=== PATIENT | male | born 1960 | race Hispanic/Latino ===

== ENCOUNTER 2017-10-26 14:14 | Emergency (ER) | payer BC ==
[~2017-10-26] VITALS: Ht 167.6 cm; Wt 70.8 kg
[~2017-10-26 14:14] MED LIST: BUDESONIDE EC3 MG PO; CLONAZEPAM0.5 MG PO; LIALDA1.2 GM PO; MELOXICAM7.5 MG PO; NEXIUM20 MG PO; PROPRANOLOL HCL10 MG PO; SUCRALFATE1 GM PO; XANAX0.5 MG PO
--- OUTSIDE RECORDS SUMMARY | 2017-10-26 14:17 | XMS REPORT | Summary of Care ---
Author Author JHONNY Mccormick, ISIDRO Organization Unknown Address Unknown Phone Unavailable Care Team Providers Care Pay Per Click Strategist Name Role Phone ISIDRO BARRY M.D. Unavailable Unavailable Unavailable Unavailable Functional Status Name Dates Details Functional status health issues are not documented Status: Name Dates Details Cognitive status health issues are not documented Status: Problems Name Dates Details Aftercare following surgery (V58.89, Z48.89) Status: Active Medications Name Dates Details Lialda 1.2 GM Oral Tablet Delayed Release Active Budesonide 3 MG Oral Capsule Delayed Release Particles * Refills: 0 Active Methocarbamol 750 MG Oral Tablet * Refills: 0 Active ClonazePAM 1 MG Oral Tablet * Refills: 0 Active Propranolol HCl - 10 MG Oral Tablet * Refills: 0 Active Hydrocodone-Acetaminophen 5-500 MG TABS * Refills: 0 Active Allergies and Adverse Reactions Name Dates Details No Known Drug Allergies (Allergy) Status: Active Past Medical History Name Dates Details History of Bloating (787.3, R14.0) Status: Resolved History of Chronic GERD (530.81, K21.9) Status: Resolved History of dysphagia (V12.79, Z87.19) Status: Resolved History of Flatus (787.3, R14.3) Status: Resolved History of gastroesophageal reflux (GERD) (V12.79, Z87.19) Status: Resolved History of hiatal hernia (V12.79, Z87.19) Status: Resolved History of hiatal hernia (V12.79, Z87.19) Status: Resolved History of Lumbar spondylosis (721.3, M47.816) Status: Resolved History of neck pain (V13.59, Z87.39) Status: Resolved History of sleep apnea (V13.89, Z86.69) Status: Resolved History of Weight loss, unintentional (783.21, R63.4) Status: Resolved Procedures Procedure Dates Details History of Cervical vertebral fusion Completed History of Rotator cuff repair Completed History of Hemicolectomy Completed History of Epigastric hernia repair Completed History of Humberto fundoplication laparoscopic Completed Immunization Name Dates Details Immunizations not documented Family History Name Dates Details No pertinent family history Status: Active Name Dates Details Family history of diabetes mellitus (V18.0, Z83.3) Status: Active Social History Name Dates Details - Status: Name Dates Details Never smoker Vital Signs Date Test Result Details [id number] BP Systolic 133 mm[Hg] Status: Comments: Location: LUE; Position: Sitting BP Diastolic 95 mm[Hg] Status: Comments: Location: LUE; Position: Sitting Height 66 in Status: Weight 163.375 lb Status: Body Mass Index Calculated 26.37 kg/m2 Status: Body Surface Area Calculated 1.84 m2 Status: Temperature 98.4 f Status: Comments: Method: Oral Heart Rate 63 /min Status: Respiration Rate 20 /min Status: Comments: Quality: Normal O2 SAT 98 % Status: Comments: Source: RA Results Date Description Value Details Results not documented Plan of Care Name Dates Details Planned Observations Planned Goals not documented Planned Encounters Appointment; ISIDRO BARRY M.D. On: 25-Jun-2018 15:15 Interventions Provided Plan* I will see him again in 9 months for a follow up. Discussion/Summary* Post op instructions: cannot perform any heavy lifting > 4lbs for 8 weeks and no driving for 4 weeks following the procedure. Crush all medications in liquid form and no drinking from straws until instructed by us in the clinic visit. Instructions Name Dates Details Instructions not documented Encounters Appointment; MIRELLA CHENG M.D. Encounter Diagnosis: Problem not documented On: 02-Jan-2017 14:00 Appointment; ISIDRO BARRY M.D. Encounter Diagnosis: Problem not documented On: 08-May-2017 13:45 Appointment; ISIDRO BARRY M.D. Encounter Diagnosis: Problem not documented On: 19-Jun-2017 8:45 Appointment; ISIDRO BARRY M.D. Encounter Diagnosis: Problem not documented On: 18-Sep-2017 15:00
[2017-10-26] MEDS ORDERED: DIATRIZOATE MEGL/DIATRIZOA SOD 30 ML BTL PO ONE (14:42)
[2017-10-26] MEDS ORDERED: SODIUM CHLORIDE 0.9% 1000ML 1,000 ML IV SCH (14:45)
[2017-10-26] MEDS ORDERED: ONDANSETRON HCL 4 MG ORAL DISINTEGRATING TAB PO ONE (14:45)
[2017-10-26] MEDS ORDERED: HYDROMORPHONE 2MG/ML INJ IV ONE (14:45)
[2017-10-26 15:00] LABS: BASOPHILS # (AUTO) 0.1 (0.0-0.1); BASOPHILS % 1.1 % (0.0-1.0); EOSINOPHILS # (AUTO) 0.7 (0.0-0.4); EOSINOPHILS % 11.2 % (0.0-6.0); HEMATOCRIT 43.8 % (38.2-49.6); HEMOGLOBIN 14.9 g/dL (14.0-18.0); LYMPHOCYTES % 31.2 % (18.0-39.1); MEAN CORPUSCULAR HEMOGLOBIN 30.2 pg (28-32); MEAN CORPUSCULAR VOLUME 88.8 fL (81-99); MONOCYTES # (AUTO) 0.6 (0.2-0.8); MONOCYTES % 9.1 % (4.4-11.3); NEUTROPHILS % 47.1 % (38.7-80.0); PLATELET COUNT 219 x10e3/uL (140-360); RED BLOOD COUNT 4.93 x10e6/uL (4.3-5.7); RED CELL DISTRIBUTION WIDTH 12.1 % (11.7-14.4)
[2017-10-26 15:04] LABS: BILIRUBIN,URINE NEGATIVE (NEGATIVE); CLARITY,URINE SL CLOUDY (CLEAR); COLOR,URINE YELLOW (YELLOW); KETONES,URINE NEGATIVE (NEGATIVE); LEUKOCYTE ESTERASE ,URINE NEGATIVE (NEGATIVE); NITRITE,URINE NEGATIVE (NEGATIVE); PROTEIN,URINE DIPSTICK TRACE (NEGATIVE); URINE UROBILINOGEN 0.2 mg/dL (0.2 - 1)
[2017-10-26 15:11] LABS: WBC,URINE (MAN) 0-5 /HPF (0-5)
[2017-10-26 15:12] LABS: BACTERIA,URINE FEW /HPF; EPITHELIAL CELLS,URINE FEW /LPF; HYALINE CASTS 0-1 (0-1)
[2017-10-26 15:41] LABS: ALANINE AMINOTRANSFERASE 25 IU/L (0-55); ALBUMIN/GLOBULIN RATIO 1.1 (0.8-2.0); ALKALINE PHOSPHATASE 85 IU/L (40-150); ANION GAP 12.8 mmol/L (8-16); BLOOD UREA NITROGEN 14 mg/dL (7-26); BUN/CREATININE RATIO 14 (6-25); CALCIUM 9.5 mg/dL (8.4-10.2); CARBON DIOXIDE 25 mmol/L (22-29); CHLORIDE 100 mmol/L (98-107); EST GLOMERULAR FILTRATION RATE > 60 ML/MIN (60-); GLUCOSE 92 mg/dL (74-118); LIPASE 15 U/L (8-78); POTASSIUM 3.8 mmol/L (3.5-5.1); SODIUM 134 mmol/L (136-145)
--- NOTE | 2017-10-26 17:23 | Diagnostic Imaging Report ---
EXAM: CT Abdomen and Pelvis WITH contrast INDICATION: Left lower quadrant pain COMPARISON: None. TECHNIQUE: Abdomen and pelvis were scanned utilizing a multidetector helical scanner from the lung base to the ischial tuberosities after administration of IV contrast. Coronal and sagittal reformations were obtained. Routine protocol was performed. Scan was performed when during portal venous phase. IV CONTRAST: 100 mL of Isovue-370 ORAL CONTRAST: Gastroview RADIATION DOSE: Total DLP: 281.0 mGy*cm Estimated effective dose: DLP x 0.015 mSv COMPLICATIONS: None FINDINGS: LINES and TUBES: None. LOWER THORAX: The lungs and airways are normal. HEPATOBILIARY: No focal hepatic lesions. No biliary ductal dilation. GALLBLADDER: Absent SPLEEN: No splenomegaly. PANCREAS: No focal masses or ductal dilatation. ADRENALS: No adrenal nodules KIDNEYS/URETERS: Kidneys enhance symmetrically. No hydronephrosis. Small hypodensities in the right kidney are too small to characterize, but likely represent cysts. No stones. GI TRACT: Post surgical changes from prior sigmoid resection. No abnormal distention, wall thickening, or evidence of bowel obstruction. Numerous sigmoid diverticula without evidence of acute diverticulitis. There is a large amount of stool throughout the colon Postsurgical changes to the stomach at the level of the GE junction. Appendix is normal. PELVIC ORGANS/BLADDER: Coarse calcifications in the prostate. Foci of gas density within the bladder are presumably related to recent catheterization. LYMPH NODES: No lymphadenopathy. VESSELS: Unremarkable. PERITONEUM / RETROPERITONEUM: No free air or fluid. BONES: Unremarkable. SOFT TISSUES: Bilateral, fat-containing inguinal hernias. No bowel involvement. Midline laparotomy scar. IMPRESSION: 1. Postsurgical changes from prior sigmoid resection. 2. Sigmoid diverticulosis without CT evidence of acute diverticulitis. 3. There is a large amount of stool throughout the colon. Signed by: Dr. Brock Spencer M.D. on 10/26/2017 5:19 PM
[2017-10-26] MEDS ORDERED: MINERAL OIL 132 ML BTL PR ONE (17:45)
[2017-10-26] MEDS ORDERED: LACTULOSE SYRUP 20 GM/30 ML UDC PO ONE (17:45)
[2017-10-26] MEDS ORDERED: MINERAL OIL 132 ML BTL PR NR (18:00)
[2017-10-26] MEDS ORDERED: SODIUM CHLORIDE 0.9% 50ML 50 ML ONE (18:47)
[2017-10-26] MEDS ORDERED: IOPAMIDOL 370 MG/ML 200 ML INFUS..BTL INJ ONE (18:47)
[2017-10-26 19:09] VITALS: BP 123/82
== END 2017-10-26 19:24 | disposition home or self-care (01) ==
LOC: ER 14:14
DX: R10.32 Left lower quadrant pain (principal); K59.00 Constipation, unspecified; Z98.0 Intestinal bypass and anastomosis status; K21.9 Gastro-esophageal reflux disease without esophagitis; F41.9 Anxiety disorder, unspecified; Z87.19 Personal history of other diseases of the digestive system
CPT/HCPCS: 36415; 74177; 80053; 81001; 83690; 85025; 99284; J1170; J7030; Q9967

== ENCOUNTER → 2018-07-11 | Day surgery (SDC) | payer BC ==
--- NOTE | 2018-07-09 12:11 | Diagnostic Imaging Report ---
EXAM: XR CHEST 2 VIEWS DATE: 07/09/2018 11:42 AM INDICATION: Preoperative. Left foot surgery. COMPARISON: None FINDINGS: Lines and Tubes: None Heart and Mediastinum: No acute cardiomediastinal findings. Lungs and Pleura: No significant pleural effusion, pneumothorax, or focal consolidation. Mild biapical scarring. Bones and Soft Tissues: Surgical anchor left humeral head. IMPRESSION: 1. No acute cardiopulmonary findings. Signed by: Dr. Lawrence Walker MD on 07/09/2018 12:08 PM
[~2018-07-11] MED LIST changes: +ACETAMINOPHEN 1000 MG/100 ML 100 ML IV ONE; +CLONAZEPAM1 MG PO; +DEXAMETHASONE SOD PHOS INJ 4 MG/ML VIAL ONE; +EPHEDRINE SULFATE INJ 50 MG/10 ML SYR ONE; +FENTANYL CITRATE/PF 100MCG/2 ML INJ ONE; +HYDROMORPHONE 2MG/ML 2 MG/ML ML ONE; +LIDOCAINE HCL 2% LOCAL INJ 5 ML SDV VIAL INJ ONE; +MIDAZOLAM HCL 2 MG/2 ML VIAL ONE; +MUPIROCIN 2% OINT 22 GM TUBE ONE; +OMEPRAZOLE40 MG PO; +ONDANSETRON HCL INJ 2MG/ML 2ML 2 MG/ML VIAL ONE; +OXYCODONE-ACET1 EAC1 PO; +PROPOFOL IV EMULSION 10 MG/ML 20 ML VIAL ONE; +REMICADE INFUSION IM/IV; +SEVOFLURANE INHAL SOLN 250 ML PEN BTL ONE
--- OUTSIDE RECORDS SUMMARY | 2018-07-11 06:50 | XMS REPORT | Summary of Care ---
Author Author [facility] Organization [facility] Address Unknown Phone Unavailable Encounter HQ Encntr_alias(FIN) [id number] Date(s): 05/08/17 - 05/08/17 [facility] [address] [place] [address]- Discharge Disposition: Home or Self Care Attending Physician: Ophelia Bowie MD Referring Physician: Ophelia Bowie MD Vital Signs No data available for this section Problem List Condition Effective Dates Status Health Status Informant Anxiety(Confirmed) Resolved Depression(Confirmed Resolved ) Reflux(Confirmed) Resolved Allergies, Adverse Reactions, Alerts Substance Reaction Severity Status NKDA Active Medications No data available for this section Results No data available for this section Immunizations No data available for this section Procedures Procedure Date Related Diagnosis Body Site Laparoscopic cholecystectomy Operation1 Rotator cuff repair2 1colon resection laparoscopic 2left Social History No data available for this section Assessment and Plan No data available for this section
--- OUTSIDE RECORDS SUMMARY | 2018-07-11 06:50 | XMS REPORT | Summary of Care ---
Author Author [facility] Organization [facility] Address Unknown Phone Unavailable Encounter [facility](MARYLU) [id number] Date(s): 05/24/17 - 05/26/17 [facility] [address] [place] [address]- Final: Dysphagia, unspecified Discharge Disposition: Home or Self Care Attending Physician: Dyllan Acevedo DO Admitting Physician: Dyllan Acevedo DO Referring Physician: Ophelia Bowie MD Vital Signs 1 2 3 Most recent to oldest [Reference Range]: 170.18 cm (05/23/17 7:20 AM) Height 97.8 DegF (05/26/17 8:12 AM) 98.2 DegF (05/26/17 4:19 AM) 98.0 DegF (05/26/17 12:06 AM) Temperature Oral [96.4-99.1 DegF] 121/76 mmHg (05/26/17 8:12 AM) 101/64 mmHg (05/26/17 4:19 AM) 113/70 mmHg (05/26/17 12:06 AM) Blood Pressure [90-140/60-90 mmHg] 16 BRMIN (05/26/17 8:49 AM) 18 BRMIN (05/26/17 8:12 AM) 16 BRMIN (05/26/17 4:19 AM) Respiratory Rate [14-20 BRMIN] 48 bpm *LOW* (05/26/17 8:12 AM) 62 bpm (05/26/17 4:19 AM) 58 bpm *LOW* (05/26/17 12:06 AM) Peripheral Pulse Rate [60-100 bpm] 69.864 kg (05/23/17 7:20 AM) Weight 24.12 m2 (05/23/17 7:20 AM) Body Mass Index Problem List Condition Effective Dates Status Health Status Informant Anxiety(Confirmed) Active Crohn Active disease(Confirmed) Depression(Confirmed Active ) Dysphagia(Confirmed) Active Reflux(Confirmed) Resolved Apnea, Active sleep(Confirmed) Allergies, Adverse Reactions, Alerts Substance Reaction Severity Status NKDA Active Medications *ATTN RN please bring pt home med to pharmacy to be labeled* *ATTN RN please bring pt home med to pharmacy to be labeled*, ATTN RN, Drug form: MISC, Route: MISC, QSHIFT, 05/25/17 0:00:00 EXTRACT PULLER, Duration: 30 day, Stop d ate: 06/23/17 16:00:00 EXTRACT PULLER Start Date: 05/25/17 Stop Date: 05/26/17 Status: Discontinued acetaminophen (ANES) Route: IV, Drug form: INJ, ONCE, Stop date: 05/24/17 10:35:00 EXTRACT PULLER Start Date: 05/24/17 Stop Date: 05/24/17 Status: Completed albuterol 0.083% inhalation solution 2.5 mg, Route: INHALATION, Q6H, Dosing Weight 69.864, kg, Start date: 05/24/17 1 8:00:00 EXTRACT PULLER, Duration: 30 day, Stop date: 06/23/17 12:00:00 EXTRACT PULLER Start Date: 05/24/17 Stop Date: 05/24/17 Status: Discontinued albuterol 0.083% inhalation solution 2.49 mg, 3 mL, Route: NEB, Drug form: SOLN, PRN, Dosing Weight 69.864, kg, PRN R espiratory Protocol, Start date: 05/24/17 14:51:00 EXTRACT PULLER, Duration: 30 day, Stop d ate: 06/23/17 14:50:00 EXTRACT PULLER Notes: SEE RT DOCUMENTATION (Same as: Proventil) Start Date: 05/24/17 Stop Date: 05/26/17 Status: Discontinued albuterol 0.083% inhalation solution 2.5 mg, 3.01 mL, Route: INHALATION, Drug form: SOLN, RQ6H, Dosing Weight 69.864, kg, Start date: 05/24/17 20:00:00 EXTRACT PULLER, Duration: 30 day, Stop date: 06/23/17 14 :00:00 EXTRACT PULLER Notes: SEE RT DOCUMENTATION (Same as: Proventil) Start Date: 05/24/17 Stop Date: 05/24/17 Status: Canceled albuterol 0.083% inhalation solution 2.49 mg, 3 mL, Route: NEB, Drug form: SOLN, RQ4H, Dosing Weight 69.864, kg, Star t date: 05/24/17 19:00:00 EXTRACT PULLER, Duration: 30 day, Stop date: 06/23/17 15:00:00 CS T Notes: SEE RT DOCUMENTATION (Same as: Delmer) Start Date: 05/24/17 Stop Date: 05/24/17 Status: Canceled ANES acetaminophen 1,000 mg, Route: PO, Drug form: TAB, ONCE, Dosing Weight 69.864, kg, PRN Pain Sc ore 1-3, Start date: 05/24/17 11:11:00 EXTRACT PULLER Start Date: 05/24/17 Stop Date: 05/24/17 Status: Discontinued ANES albuterol 0.083% inhalation solution 2.49 mg, Route: NEB, Q20Min, Dosing Weight 69.864, kg, PRN Wheezing, Priority: R outine, Start date: 05/24/17 11:11:00 EXTRACT PULLER, Duration: 30 day, Stop date: 06/23/17 11:10:00 EXTRACT PULLER Start Date: 05/24/17 Stop Date: 05/24/17 Status: Discontinued ANES diphenhydrAMINE 12.5 mg, Route: IVP, Drug form: INJ, Q6H, Dosing Weight 69.864, kg, PRN Itching, Start date: 05/24/17 11:11:00 EXTRACT PULLER, Duration: 30 day, Stop date: 06/23/17 11:10: 00 EXTRACT PULLER Start Date: 05/24/17 Stop Date: 05/24/17 Status: Discontinued ANES fentaNYL 50 microgram, Route: IVP, Q5Min, Dosing Weight 69.864, kg, PRN Pain Score 7-10, Priority: Routine, Start date: 05/24/17 11:11:00 EXTRACT PULLER, Duration: 2 doses or times , Stop date: Limited # of times Start Date: 05/24/17 Stop Date: 05/24/17 Status: Completed ANES fentaNYL 25 microgram, Route: IVP, Q5Min, Dosing Weight 69.864, kg, PRN Pain Score 4-6, P riority: Routine, Start date: 05/24/17 11:11:00 EXTRACT PULLER, Duration: 4 doses or times, Stop date: Limited # of times Start Date: 05/24/17 Stop Date: 05/24/17 Status: Discontinued ANES flumazenil 0.2 mg, Route: IVP, PRN, Dosing Weight 69.864, kg, PRN Benzodiazepine Reversal, Initial dose, Start date: 05/24/17 11:11:00 EXTRACT PULLER, Duration: 30 day, Stop date: 11:10:00 EXTRACT PULLER Start Date: 05/24/17 Stop Date: 05/24/17 Status: Discontinued ANES hydrALAZINE 10 mg, Route: IVP, Q20Min, Dosing Weight 69.864, kg, PRN Elevated BP, Start date : 05/24/17 11:11:00 EXTRACT PULLER, Duration: 2 doses or times, Stop date: Limited # of luly es Start Date: 05/24/17 Stop Date: 05/24/17 Status: Discontinued ANES HYDROmorphone 0.5 mg, Route: IVP, Q5Min, Dosing Weight 69.864, kg, PRN Pain Score 7-10, Start date: 05/24/17 11:11:00 EXTRACT PULLER, Duration: 4 doses or times, Stop date: Limited # of times Start Date: 05/24/17 Stop Date: 05/24/17 Status: Discontinued ANES ketOROLAC 30 mg, Route: IVP, ONCE, Dosing Weight 69.864, kg, Start date: 05/24/17 11:11:00 EXTRACT PULLER, Stop date: 05/24/17 11:11:00 EXTRACT PULLER Start Date: 05/24/17 Stop Date: 05/24/17 Status: Discontinued ANES labetalol 10 mg, Route: IVP, Q5Min, Dosing Weight 69.864, kg, PRN Elevated BP, Start date: 05/24/17 11:11:00 EXTRACT PULLER, Duration: 5 doses or times, Stop date: Limited # of times Start Date: 05/24/17 Stop Date: 05/24/17 Status: Discontinued ANES meperidine 12.5 mg, Route: IVP, Q30Min, Dosing Weight 69.864, kg, PRN Other -See Comment, F or shivering, Start date: 05/24/17 11:11:00 EXTRACT PULLER, Duration: 2 doses or times, Sto p date: Limited # of times Start Date: 05/24/17 Stop Date: 05/24/17 Status: Discontinued ANES naloxone 0.4 mg, Route: IVP, Q2MIN, Dosing Weight 69.864, kg, PRN Narcotic Reversal, Star t date: 05/24/17 11:11:00 EXTRACT PULLER, Duration: 8 doses or times, Stop date: Limited # of times Start Date: 05/24/17 Stop Date: 05/24/17 Status: Discontinued ANES naloxone 0.1 mg, Route: SUB-Q, Q6H, Dosing Weight 69.864, kg, PRN Itching, Start date: 11:11:00 EXTRACT PULLER, Duration: 30 day, Stop date: 06/23/17 11:10:00 EXTRACT PULLER Start Date: 05/24/17 Stop Date: 05/24/17 Status: Discontinued ANES ondansetron 4 mg, Route: IVP, ONCE, Dosing Weight 69.864, kg, PRN Nausea & Vomiting, Start date: 05/24/17 11:11:00 EXTRACT PULLER Start Date: 05/24/17 Stop Date: 05/24/17 Status: Discontinued ANES oxyCODONE 5 mg, Route: PO, Drug form: TAB, Q4H, Dosing Weight 69.864, kg, PRN Pain Score 4 -6, Start date: 05/24/17 11:11:00 EXTRACT PULLER, Duration: 30 day, Stop date: 06/23/17 11: 10:00 EXTRACT PULLER Start Date: 05/24/17 Stop Date: 05/24/17 Status: Discontinued ANES oxyCODONE 10 mg, Route: PO, Drug form: TAB, Q4H, Dosing Weight 69.864, kg, PRN Pain Score 7-10, Start date: 05/24/17 11:11:00 EXTRACT PULLER, Duration: 30 day, Stop date: 06/23/17 1 1:10:00 EXTRACT PULLER Start Date: 05/24/17 Stop Date: 05/24/17 Status: Discontinued ANES promethazine 6.25 mg, Route: IVPB, ONCE, Dosing Weight 69.864, kg, PRN Nausea & Vomiting, Start date: 05/24/17 11:11:00 EXTRACT PULLER Start Date: 05/24/17 Stop Date: 05/24/17 Status: Discontinued budesonide 12 mg, PO, Daily, 0 Refill(s) Start Date: 05/23/17 Stop Date: 05/24/17 Status: Discontinued budesonide 9 mg, 3 cap, Route: PO, Drug form: ERCAP, Daily, Dosing Weight 69.864, kg, Start date: 05/25/17 9:00:00 EXTRACT PULLER, Duration: 30 day, Stop date: 06/23/17 9:00:00 EXTRACT PULLER Notes: (Same As: Entocort EC or Budesonide 3 mg EC / ERC) "Do Not Crush" Start Date: 05/25/17 Stop Date: 05/26/17 Status: Discontinued budesonide 3 mg oral capsule, extended release 9 mg=3 cap, PO, Daily, # 270 cap, 0 Refill(s) Start Date: 05/24/17 Status: Ordered cefOXitin (ANES) Route: IV, Drug form: INJ, ONCE, Stop date: 05/24/17 9:35:00 EXTRACT PULLER Start Date: 05/24/17 Stop Date: 05/24/17 Status: Completed cefOXitin (SCIP) + sterile water 10 mL 1 gm, Route: IVP, ABXQ6H, Dosing Weight 69.864, kg, Start date: 05/24/17 17:00:0 0 EXTRACT PULLER, Duration: 24 hr, Stop date: 05/25/17 10:00:00 EXTRACT PULLER, ABX Indication: Surgic al Prophylaxis Notes: (Same As: Mefoxin) Start Date: 05/24/17 Stop Date: 05/25/17 Status: Completed clonazePAM 1 mg, PO, TID, 0 Refill(s) Start Date: 05/23/17 Status: Ordered clonazePAM 1 mg, 1 tab, Route: PO, Drug form: TAB, TID, Dosing Weight 69.864, kg, PRN Anxie ty, Start date: 05/24/17 14:56:00 EXTRACT PULLER, Duration: 30 day, Stop date: 06/23/17 14: 55:00 EXTRACT PULLER Notes: (Same As: KlonoPIN) Start Date: 05/24/17 Stop Date: 05/26/17 Status: Discontinued dexamethasone (ANES) Route: IV, Drug form: INJ, ONCE, Stop date: 05/24/17 10:35:00 EXTRACT PULLER Start Date: 05/24/17 Stop Date: 05/24/17 Status: Completed ePHEDrine (ANES) Route: IV, Drug form: INJ, ONCE, Stop date: 05/24/17 10:35:00 EXTRACT PULLER Start Date: 05/24/17 Stop Date: 05/24/17 Status: Completed famotidine (ANES) Route: IV, Drug form: INJ, ONCE, Stop date: 05/24/17 9:25:00 EXTRACT PULLER Start Date: 05/24/17 Stop Date: 05/24/17 Status: Completed fentaNYL 50 microgram, Route: IVP, ONCE, Dosing Weight 69.864, kg, Priority: STAT, Start date: 05/24/17 12:35:00 EXTRACT PULLER, Stop date: 05/24/17 12:35:00 EXTRACT PULLER Start Date: 05/24/17 Stop Date: 05/24/17 Status: Completed fentaNYL (ANES) Route: IV, Drug form: INJ, ONCE, Stop date: 05/24/17 9:20:00 EXTRACT PULLER Start Date: 05/24/17 Stop Date: 05/24/17 Status: Completed glycopyrrolate (ANES) Route: IV, Drug form: INJ, ONCE, Stop date: 05/24/17 9:35:00 EXTRACT PULLER Start Date: 05/24/17 Stop Date: 05/24/17 Status: Completed heparin 5,000 unit, 1 mL, Route: SUB-Q, Drug form: INJ, Q12H, Dosing Weight 69.864, kg, Start date: 05/24/17 23:00:00 EXTRACT PULLER, Duration: 30 day, Stop date: 06/23/17 11:00:0 0 EXTRACT PULLER Notes: porcine heparin Start Date: 05/24/17 Stop Date: 05/24/17 Status: Canceled heparin 5,000 unit, 1 mL, Route: SUB-Q, Drug form: INJ, Q12H, Dosing Weight 69.864, kg, Start date: 05/24/17 20:00:00 EXTRACT PULLER, Duration: 30 day, Stop date: 06/23/17 8:00:00 EXTRACT PULLER Notes: porcine heparin Start Date: 05/24/17 Stop Date: 05/26/17 Status: Discontinued heparin 5000 units/mL injectable solution 5,000 unit, Route: SUB-Q, Drug form: INJ, ONCALL, Dosing Weight 69.864, kg, Star t date: 05/24/17 8:00:00 EXTRACT PULLER, Duration: 30 day, Stop date: 06/23/17 7:59:00 EXTRACT PULLER Start Date: 05/24/17 Stop Date: 05/24/17 Status: Completed ketOROLAC 15 mg/mL injectable solution 15 mg, 1 mL, Route: IV, Drug form: INJ, Q6Hnow, Dosing Weight 69.864, kg, Start date: 05/25/17 22:00:00 EXTRACT PULLER, Duration: 2 day, Stop date: 05/27/17 16:00:00 EXTRACT PULLER Notes: (Same as:Toradol) IV bolus must be given >15 seconds. Give IM administration slowly and deeply into the muscle. Not for use > 4 days. Start Date: 05/25/17 Stop Date: 05/26/17 Status: Discontinued ketOROLAC 30 mg/mL injectable solution 30 mg, 1 mL, Route: IV, Drug form: INJ, ONCE, Dosing Weight 69.864, kg, Start da te: 05/25/17 15:38:00 EXTRACT PULLER, Stop date: 05/25/17 15:38:00 EXTRACT PULLER Notes: (Same as:Toradol) IV bolus must be given >15 seconds. Give IM administration slowly and deeply into the muscle.Not for use > 4 days MEDICATION WASTE Product Size: 30 mgProduct Wasted: ___ mg Start Date: 05/25/17 Stop Date: 05/25/17 Status: Completed Lactated Ringers Injection IV (ANES) 1000 mL Route: IV, Total Volume: 1,000, Start date: 05/24/17 8:19:00 EXTRACT PULLER, Stop date: 01/31 9:19:00 EXTRACT PULLER Start Date: 05/24/17 Stop Date: 05/24/17 Status: Completed Lactated Ringers Injection IV 1000 mL 1,000 mL, Rate: 25 ml/hr, Infuse over: 40 hr, Route: IV, Dosing Weight 69.864 kg , Total Volume: 1,000, Start date: 05/24/17 7:02:00 EXTRACT PULLER, Duration: 30 day, Stop date: 06/23/17 7:01:00 EXTRACT PULLER, 1.83, m2 Start Date: 05/24/17 Stop Date: 05/24/17 Status: Discontinued Lialda 4.8 gm, Route: PO, Drug form: ECTAB, Daily, Dosing Weight 69.864, kg, Start date : 05/25/17 9:00:00 EXTRACT PULLER, Duration: 30 day, Stop date: 06/23/17 9:00:00 EXTRACT PULLER Start Date: 05/25/17 Stop Date: 05/26/17 Status: Discontinued Lialda 1.2 g oral enteric coated tablet 4.8 gm=4 tab, PO, Daily, # 224 tab, 0 Refill(s) Start Date: 05/23/17 Status: Ordered lidocaine (ANES) Route: IV, Drug form: INJ, ONCE, Stop date: 05/24/17 9:20:00 EXTRACT PULLER Start Date: 05/24/17 Stop Date: 05/24/17 Status: Completed magnesium sulfate 2 gm in Water 50 ml 2 gm, 50 mL, Route: IVPB, Drug form: INJ, ONCE, Dosing Weight 69.864, kg, Start date: 05/24/17 13:38:00 EXTRACT PULLER, Stop date: 05/24/17 13:38:00 EXTRACT PULLER Notes: WASTE: F/P - Sink; E - Municipal Trash Bin Start Date: 05/24/17 Stop Date: 05/24/17 Status: Completed metoclopramide (ANES) Route: IV, Drug form: INJ, ONCE, Stop date: 05/24/17 9:25:00 EXTRACT PULLER Start Date: 05/24/17 Stop Date: 05/24/17 Status: Completed midazolam (ANES) Route: IV, Drug form: SOLN, ONCE, Stop date: 05/24/17 9:15:00 EXTRACT PULLER Start Date: 05/24/17 Stop Date: 05/24/17 Status: Completed morphine Sulfate 4 mg, 2 mL, Route: IVP, Drug form: SOLN, Q4H, Dosing Weight 69.864, kg, PRN Pain Score 7-10, Start date: 05/24/17 14:50:00 EXTRACT PULLER, Stop date: 06/23/17 14:49:00 EXTRACT PULLER Start Date: 05/24/17 Stop Date: 05/26/17 Status: Discontinued morphine Sulfate 4 mg, Route: IVP, ONCE, Dosing Weight 69.864, kg, Priority: NOW, Start date: 01/31 11:16:00 EXTRACT PULLER, Stop date: 05/24/17 11:16:00 EXTRACT PULLER Start Date: 05/24/17 Stop Date: 05/24/17 Status: Completed morphine Sulfate 4 mg, Route: IVP, Q4H, Dosing Weight 69.864, kg, PRN Pain Score 1-5, Start date: 05/24/17 16:39:00 EXTRACT PULLER, Duration: 30 day, Stop date: 06/23/17 16:38:00 EXTRACT PULLER Start Date: 05/24/17 Stop Date: 05/24/17 Status: Discontinued neostigmine (ANES) Route: IV, Drug form: INJ, ONCE, Stop date: 05/24/17 11:15:00 EXTRACT PULLER Start Date: 05/24/17 Stop Date: 05/24/17 Status: Completed Fletcher 10/325 oral tablet 1 tab, PO, Q6H, PRN for pain, # 24 tab, 0 Refill(s) Start Date: 05/23/17 Stop Date: 05/29/17 Status: Ordered Omnipaque 300 50 ml, Route: PO, Drug Form: SOLN, Dosing Weight 69.864, kg, ONCE, Start date: 07/26/16 13:17:00 EXTRACT PULLER, Stop date: 05/25/17 13:17:00 EXTRACT PULLER Notes: (Same as:Omnipaque 300).WASTE: F/P - Black; E - Municipal Trash Bin Start Date: 05/25/17 Stop Date: 05/25/17 Status: Completed Omnipaque 300 100 ml, Route: IV, Drug Form: SOLN, Dosing Weight 69.864, kg, ONCE, Start date: 05/25/17 13:17:00 EXTRACT PULLER, Stop date: 05/25/17 13:17:00 EXTRACT PULLER Notes: (Same as:Omnipaque 300).WASTE: F/P - Black; E - Municipal Trash Bin Start Date: 05/25/17 Stop Date: 05/25/17 Status: Completed ondansetron (ANES) Route: IV, Drug form: INJ, ONCE, Stop date: 05/24/17 10:35:00 EXTRACT PULLER Start Date: 05/24/17 Stop Date: 05/24/17 Status: Completed Pepcid 20 mg, 2 mL, Route: IVP, Drug form: INJ, Q12H, Dosing Weight 69.864, kg, Start d ate: 05/26/17 9:00:00 EXTRACT PULLER, Duration: 30 day, Stop date: 06/24/17 21:00:00 EXTRACT PULLER Notes: (Same as: Pepcid)Can be dilute in 5-10cc NS IVP: Slow IV push over at le ast 2 minutes. Start Date: 05/26/17 Stop Date: 05/26/17 Status: Discontinued Pepcid 20 mg oral tablet 40 mg, 2 tab, Route: PO, Drug form: TAB, Daily, Dosing Weight 69.864, kg, Start date: 05/27/17 9:00:00 EXTRACT PULLER, Duration: 30 day, Stop date: 06/25/17 9:00:00 EXTRACT PULLER Notes: (Same as: Pepcid) Start Date: 05/27/17 Stop Date: 05/26/17 Status: Canceled Pepcid 40 mg/5 mL oral liquid 40 mg=5 mL, PO, Daily, # 150 mL, 0 Refill(s) Start Date: 05/26/17 Status: Ordered propofol (ANES) Route: IV, Drug form: INJ, ONCE, Stop date: 05/24/17 9:20:00 EXTRACT PULLER Start Date: 05/24/17 Stop Date: 05/24/17 Status: Completed rocuronium (ANES) Route: IV, Drug form: INJ, ONCE, Stop date: 05/24/17 9:20:00 EXTRACT PULLER Start Date: 05/24/17 Stop Date: 05/24/17 Status: Completed scopolamine (ANES) Route: IV, Drug form: ERFILM, ONCE, Stop date: 05/24/17 9:15:00 EXTRACT PULLER Start Date: 05/24/17 Stop Date: 05/24/17 Status: Completed Sodium Chloride 0.9% IV (ANES) 1000 mL Route: IV, Total Volume: 1,000, Start date: 05/24/17 8:28:00 EXTRACT PULLER, Stop date: 01/31 9:28:00 EXTRACT PULLER Start Date: 05/24/17 Stop Date: 05/24/17 Status: Completed Sodium Chloride 0.9% IV 1,000 mL 1,000 mL, Rate: 75 ml/hr, Infuse over: 13.3 hr, Route: IV, Dosing Weight 69.864 kg, Total Volume: 1,000, Start date: 05/24/17 13:42:00 EXTRACT PULLER, Duration: 30 day, St op date: 06/23/17 13:41:00 EXTRACT PULLER, 1.83, m2 Start Date: 05/24/17 Stop Date: 05/26/17 Status: Discontinued Sodium Chloride 0.9% IV 1,000 mL 1,000 mL, Rate: 75 ml/hr, Infuse over: 13.3 hr, Route: IV, Dosing Weight 69.864 kg, Total Volume: 1,000, Start date: 05/24/17 16:39:00 EXTRACT PULLER, Duration: 30 day, St op date: 06/23/17 16:38:00 EXTRACT PULLER, 1.83, m2 Start Date: 05/24/17 Stop Date: 05/24/17 Status: Discontinued Sodium Chloride 0.9% IV 1000 mL 1,000 mL, Rate: 25 ml/hr, Infuse over: 40 hr, Route: IV, Dosing Weight 69.864 kg , Total Volume: 1,000, Start date: 05/24/17 7:02:00 EXTRACT PULLER, Duration: 30 day, Stop date: 06/23/17 7:01:00 EXTRACT PULLER, 1.83, m2 Start Date: 05/24/17 Stop Date: 05/24/17 Status: Discontinued Tylenol 650 mg, 20.3 mL, Route: PO, Drug form: LIQ, Q6H, Dosing Weight 69.864, kg, PRN P ain 1-3/Temp > 100.4 F, Start date: 05/24/17 14:51:00 EXTRACT PULLER, Duration: 30 day, Stop date: 06/23/17 14:50:00 EXTRACT PULLER Notes: Max dmmszldlorifg=2201um/day (4 gm/day). (Same as: Tylenol) Start Date: 05/24/17 Stop Date: 05/26/17 Status: Discontinued Tylenol with Codeine 120 mg-12 mg/5 mL oral liquid 15 ml, Route: PO, Drug Form: LIQ, Dosing Weight 69.864, kg, Q6H, PRN Pain Score 4-6, Start date: 05/24/17 14:51:00 EXTRACT PULLER, Duration: 30 day, Stop date: 06/23/17 14 :50:00 EXTRACT PULLER Notes: (acetaminophen-codeine 120-12 mg/5 ml oral liq) Do not exceed 4gm/day of acetaminophen. (Same as: Tylenol w/Codeine) Start Date: 05/24/17 Stop Date: 05/25/17 Status: Discontinued Tylenol with Codeine 120 mg-12 mg/5 mL oral liquid 10 mL, PO, Q6H, PRN Pain Score 1-3, # 240 mL, 0 Refill(s) Start Date: 05/26/17 Stop Date: 05/27/17 Status: Completed Tylenol with Codeine 120 mg-12 mg/5 mL oral liquid 15 ml, Route: PO, Drug Form: LIQ, Dosing Weight 69.864, kg, Q4H, PRN Pain Score 4-6, Start date: 05/25/17 5:51:00 EXTRACT PULLER, Duration: 30 day, Stop date: 06/24/17 5:5 0:00 EXTRACT PULLER Notes: (acetaminophen-codeine 120-12 mg/5 ml oral liq) Do not exceed 4gm/day of acetaminophen. (Same as: Tylenol w/Codeine) Start Date: 05/25/17 Stop Date: 05/26/17 Status: Discontinued Tylenol with Codeine 120 mg-12 mg/5 mL oral liquid 10 ml, Route: PO, Drug Form: LIQ, Dosing Weight 69.864, kg, Q6H, PRN Pain Score 1-3, Start date: 05/26/17 10:06:00 EXTRACT PULLER, Duration: 5 day, Stop date: 05/31/17 10: 05:00 EXTRACT PULLER Notes: (acetaminophen-codeine 120-12 mg/5 ml oral liq) Do not exceed 4gm/day of acetaminophen. (Same as: Tylenol w/Codeine) Start Date: 05/26/17 Stop Date: 05/26/17 Status: Discontinued Zofran 4 mg, 2 mL, Route: IVP, Drug form: INJ, Q6H, Dosing Weight 69.864, kg, PRN Nause a, Start date: 05/24/17 14:51:00 EXTRACT PULLER, Duration: 30 day, Stop date: 06/23/17 14:5 0:00 EXTRACT PULLER Notes: (Same as: Zofran) MEDICATION WASTE Product Size: 4 mgProduct Was [place]: ___ mg Start Date: 05/24/17 Stop Date: 05/26/17 Status: Discontinued Zosyn + Sodium Chloride 0.9% IV 100 mL 3.375 gm, Route: IVPB, ABXQ6H, Dosing Weight 69.864, kg, Start date: 05/25/17 14 :00:00 EXTRACT PULLER, Duration: 10 day, Stop date: 06/04/17 8:00:00 EXTRACT PULLER, ABX Indication: O ther (specify in Comments) Notes: (Same as: Zosyn)Dosing based on Piperacillin component MEDICATION [place] FRANDY Product Size: 3375 mgProduct Wasted: ___ mg Start Date: 05/25/17 Stop Date: 05/26/17 Status: Discontinued Results BLOOD BANK RESULTS 1 2 3 Most recent to oldest [Reference Range]: A POS *Unknown* (05/23/17 7:55 AM) ABO/Rh Negative (05/23/17 7:55 AM) Antibody Scrn Product available (05/23/17 7:25 AM) RBC product ELECTROLYTES 1 2 3 Most recent to oldest [Reference Range]: 141 mEq/L (05/26/17 5:11 AM) 142 mEq/L (05/25/17 5:06 AM) 141 mEq/L (05/24/17 11:28 AM) Sodium Lvl [135-145 mEq/L] 4.3 mEq/L (05/26/17 5:11 AM) 4.3 mEq/L (05/25/17 5:06 AM) 4.1 mEq/L (05/24/17 11:28 AM) Potassium Lvl [3.5-5.1 mEq/L] 108 mEq/L (05/26/17 5:11 AM) 107 mEq/L (05/25/17 5:06 AM) 107 mEq/L (05/24/17 11:28 AM) Chloride Lvl [95-109 mEq/L] 26 mEq/L (05/26/17 5:11 AM) 26 mEq/L (05/25/17 5:06 AM) 23 mEq/L *LOW* (05/24/17 11:28 AM) CO2 [24-32 mEq/L] 11.3 mEq/L (05/26/17 5:11 AM) 13.3 mEq/L (05/25/17 5:06 AM) 15.1 mEq/L (05/24/17 11:28 AM) AGAP [10.0-20.0 mEq/L] CHEM PANEL 1 2 3 Most recent to oldest [Reference Range]: 0.73 mg/dL (05/26/17 5:11 AM) 0.91 mg/dL (05/25/17 5:06 AM) 0.71 mg/dL (05/24/17 11:28 AM) Creatinine Lvl [0.50-1.40 mg/dL] 105 mL/min/1.73m2 1 *NA* (05/26/17 5:11 AM) 95 mL/min/1.73m2 2 *NA* (05/25/17 5:06 AM) 107 mL/min/1.73m2 3 *NA* (05/24/17 11:28 AM) eGFR 9 mg/dL (05/26/17 5:11 AM) 10 mg/dL (05/25/17 5:06 AM) 20 mg/dL (05/24/17 11:28 AM) BUN [7-22 mg/dL] 11 (05/25/17 5:06 AM) 21 (05/23/17 7:55 AM) B/C Ratio [6-25] 90 mg/dL (05/26/17 5:11 AM) 102 mg/dL *HI* (05/25/17 5:06 AM) 124 mg/dL *HI* (05/24/17 11:28 AM) Glucose Lvl [70-99 mg/dL] 5.8 g/dL *LOW* (05/26/17 5:11 AM) 6.5 g/dL (05/25/17 5:06 AM) 7.6 g/dL (05/23/17 7:55 AM) Total Protein [6.4-8.4 g/dL] 2.9 g/dL *LOW* (05/26/17 5:11 AM) 3.1 g/dL *LOW* (05/25/17 5:06 AM) 3.8 g/dL (05/23/17 7:55 AM) Albumin Lvl [3.5-5.0 g/dL] 2.9 g/dL (05/26/17 5:11 AM) 3.4 g/dL (05/25/17 5:06 AM) 3.8 g/dL (05/23/17 7:55 AM) Globulin [2.7-4.2 g/dL] 1.0 (05/26/17 5:11 AM) 0.9 (05/25/17 5:06 AM) 1.0 (05/23/17 7:55 AM) A/G Ratio [0.7-1.6] 8.3 mg/dL *LOW* (05/26/17 5:11 AM) 8.1 mg/dL *LOW* (05/25/17 5:06 AM) 7.6 mg/dL *LOW* (05/24/17 11:28 AM) Calcium Lvl [8.5-10.5 mg/dL] 2.3 mg/dL (05/26/17 5:11 AM) 2.4 mg/dL (05/24/17 5:07 PM) 1.7 mg/dL *LOW* (05/24/17 11:28 AM) Magnesium Lvl [1.8-2.4 mg/dL] 700 unit/L *HI* (05/26/17 5:11 AM) 332 unit/L *HI* (05/25/17 5:06 AM) 28 unit/L (05/23/17 7:55 AM) ALT [0-65 unit/L] 490 unit/L *HI* (05/26/17 5:11 AM) 233 unit/L *HI* (05/25/17 5:06 AM) 14 unit/L (05/23/17 7:55 AM) AST [0-37 unit/L] 62 unit/L (05/26/17 5:11 AM) 69 unit/L (05/25/17 5:06 AM) 89 unit/L (05/23/17 7:55 AM) Alk Phos [39-136 unit/L] 0.7 mg/dL (05/26/17 5:11 AM) 0.8 mg/dL (05/25/17 5:06 AM) 0.7 mg/dL (05/23/17 7:55 AM) Bili Total [0.2-1.3 mg/dL] 0.2 mg/dL (05/26/17 5:11 AM) Bili Direct [0.0-0.3 mg/dL] 0.5 mg/dL (05/26/17 5:11 AM) Bili Indirect [0.0-1.0 mg/dL] 1Result Comment: The eGFR is calculated using the CKD-EPI formula. In most young, healthy individuals the eGFR will be >90 mL/min/1.73m2. The eGFR declines with age. An eGFR of 60-89 may be normal in some populations, particularly the elderly, for whom the CKD-EPI formula has not been extensively validated. Use of the eGFR is not recommended in the following populations: Individuals with unstable creatinine concentrations, including patients and those with serious co-morbid conditions. Patients with extremes in muscle mass or diet. The data above are obtained from the [employer] ( [employer]) which additionally recommends that when the eGFR is used in patients with extremes of body mass index for purposes of drug dosing, the eGFR should be mul tiplied by the estimated BMI. 2Result Comment: The eGFR is calculated using the CKD-EPI formula. In most young, healthy individuals the eGFR will be >90 mL/min/1.73m2. The eGFR declines with age. An eGFR of 60-89 may be normal in some populations, particularly the elderly, for whom the CKD-EPI formula has not been extensively validated. Use of the eGFR is not recommended in the following populations: Individuals with unstable creatinine concentrations, including patients and those with serious co-morbid conditions. Patients with extremes in muscle mass or diet. The data above are obtained from the National Kidney Disease Education Program ( NKDEP) which additionally recommends that when the eGFR is used in patients with extremes of body mass index for purposes of drug dosing, the eGFR should be mul tiplied by the estimated BMI. 3Result Comment: The eGFR is calculated using the CKD-EPI formula. In most young, healthy individuals the eGFR will be >90 mL/min/1.73m2. The eGFR declines with age. An eGFR of 60-89 may be normal in some populations, particularly the elderly, for whom the CKD-EPI formula has not been extensively validated. Use of the eGFR is not recommended in the following populations: Individuals with unstable creatinine concentrations, including patients and those with serious co-morbid conditions. Patients with extremes in muscle mass or diet. The data above are obtained from the National Kidney Disease Education Program ( NKDEP) which additionally recommends that when the eGFR is used in patients with extremes of body mass index for purposes of drug dosing, the eGFR should be mul tiplied by the estimated BMI. URINE AND STOOL 1 2 3 Most recent to oldest [Reference Range]: Clear (05/23/17 7:55 AM) UA Turbidity [Clear] Yellow *NA* (05/23/17 7:55 AM) UA Color [Yellow] 5.0 (05/23/17 7:55 AM) UA pH [5.0-8.0] 1.025 (05/23/17 7:55 AM) UA Spec Grav [<=1.030] Negative mg/dL *NA* (05/23/17 7:55 AM) UA Glucose [Negative mg/dL] Negative (05/23/17 7:55 AM) UA Blood [Negative] Negative mg/dL *NA* (05/23/17 7:55 AM) UA Ketones [Negative mg/dL] Negative mg/dL (05/23/17 7:55 AM) UA Protein [Negative mg/dL] 2.0 mg/dL *HI* (05/23/17 7:55 AM) UA Urobilinogen [0.1-1.0 mg/dL] Negative *NA* (05/23/17 7:55 AM) UA Bili [Negative] Negative (05/23/17 7:55 AM) UA Leuk Est [Negative] Negative (05/23/17 7:55 AM) UA Nitrite [Negative] 2 /HPF (05/23/17 7:55 AM) UA RBC [0-2 /HPF] None Seen *NA* (05/23/17 7:55 AM) UA Sq Epi Few /LPF *NA* (05/23/17 7:55 AM) UA Mucus [None Seen /LPF] HEMATOLOGY 1 2 3 Most recent to oldest [Reference Range]: 8.0 K/CMM (05/26/17 5:11 AM) 14.9 K/CMM *HI* (05/25/17 5:06 AM) 10.3 K/CMM (05/24/17 11:28 AM) WBC [3.7-10.4 K/CMM] 4.28 M/CMM *LOW* (05/26/17 5:11 AM) 4.40 M/CMM *LOW* (05/25/17 5:06 AM) 4.55 M/CMM *LOW* (05/24/17:28 AM) RBC [4.70-6.10 M/CMM] 13.0 g/dL *LOW* (05/26/17 5:11 AM) 13.5 g/dL *LOW* (05/25/17 5:06 AM) 13.7 g/dL *LOW* (05/24/17:28 AM) Hgb [14.0-18.0 g/dL] 38.3 % *LOW* (05/26/17 5:11 AM) 39.0 % *LOW* (05/25/17 5: AM) 40.6 % *LOW* (05/24/17 11:28 AM) Hct [42.0-54.0 %] 89.6 fL (05/26/17 5:11 AM) 88.7 fL (05/25/17: AM) 89.3 fL (05/24/17:28 AM) MCV [80.0-94.0 fL] 30.3 pg (05/26/17 5:11 AM) 30.6 pg (05/25/17 5:06 AM) 30.1 pg (05/24/17:28 AM) MCH [27.0-31.0 pg] 33.8 g/dL (05/26/17 5:11 AM) 34.5 g/dL (05/25/17 5:06 AM) 33.7 g/dL (05/24/17 11:28 AM) MCHC [32.0-36.0 g/dL] 13.1 % (05/26/17 5:11 AM) 12.9 % (05/25/17 5:06 AM) 12.7 % (05/24/17 11:28 AM) RDW [11.5-14.5 %] 163 K/CMM (05/26/17 5:11 AM) 192 K/CMM (05/25/17 5:06 AM) 198 K/CMM (05/24/17 11:28 AM) Platelet [133-450 K/CMM] 8.3 fL (05/26/17 5:11 AM) 8.0 fL (05/25/17 5:06 AM) 7.8 fL (05/24/17 11:28 AM) MPV [7.4-10.4 fL] 69.4 % (05/26/17 5:11 AM) 83.4 % *HI* (05/24/17 11:28 AM) 70.7 % (05/23/17 7:55 AM) Segs [45.0-75.0 %] 19.8 % *LOW* (05/26/17 5:11 AM) 12.7 % *LOW* (05/24/17 11:28 AM) 22.2 % (05/23/17 7:55 AM) Lymphocytes [20.0-40.0 %] 9.5 % (05/26/17 5:11 AM) 3.5 % (05/24/17 11:28 AM) 6.4 % (05/23/17 7:55 AM) Monocytes [2.0-12.0 %] 0.7 % (05/26/17 5:11 AM) 0.2 % (05/24/17 11:28 AM) 0.4 % (05/23/17 7:55 AM) Eosinophils [0.0-4.0 %] 0.6 % (05/26/17 5:11 AM) 0.2 % (05/24/17 11:28 AM) 0.3 % (05/23/17 7:55 AM) Basophils [0.0-1.0 %] 5.5 K/CMM (05/26/17 5:11 AM) 8.6 K/CMM *HI* (05/24/17 11:28 AM) 6.5 K/CMM (05/23/17 7:55 AM) Segs-Bands # [1.5-8.1 K/CMM] 1.6 K/CMM (05/26/17 5:11 AM) 1.3 K/CMM (05/24/17 11:28 AM) 2.0 K/CMM (05/23/17 7:55 AM) Lymphocytes # [1.0-5.5 K/CMM] 0.8 K/CMM (05/26/17 5:11 AM) 0.4 K/CMM (05/24/17 11:28 AM) 0.6 K/CMM (05/23/17 7:55 AM) Monocytes # [0.0-0.8 K/CMM] 0.1 K/CMM (05/26/17 5:11 AM) Eosinophils # [0.0-0.5 K/CMM] 12.1 seconds (05/23/17 7:55 AM) PT [12.0-14.7 seconds] 0.90 (05/23/17 7:55 AM) INR [0.85-1.17] 23.9 seconds (05/23/17 7:55 AM) PTT [22.9-35.8 seconds] Immunizations No data available for this section Procedures Procedure Date Related Diagnosis Body Site Cervical discectomy Esophagogastroduodenoscopy Laparoscopic cholecystectomy Laparoscopic repair of ventral hernia Humberto fundoplication Operation1 Rotator cuff repair2 1colon resection laparoscopic 2left Social History Social History Type Response Alcohol Current1 Smoking Status Former smoker; Exposure to Tobacco Smoke None; Cigarette Smoking Last 365 Days Yes; Reg Smoking Cessation Counseling No 1social Assessment and Plan Extracted from: Title: Clinical Document Author: Ophelia Bowie MD Date: 05/26/17 Feels better Afebrile Chest CT showed no evidence of leak Abdomen: soft D/C home today FU in 2 weeks Extracted from: Title: Clinical Document Author: Ophelia Bowie MD Date: 05/24/17 PATIENT NAME: PALMIRA GANDARA JR DATE OF OPERATION/PROCEDURE: 05/24/2017 PREPROCEDURE DIAGNOSES: 1. S/P Laparoscopic Humberto fundoplication in 05/2016 2. Tight fundoplication 3. Dysphagia, weight loss POSTPROCEDURE DIAGNOSES: 1. S/P Laparoscopic Humberto fundoplication in 05/2016 2. Tight fundoplication 3. Dysphagia, weight loss PROCEDURES: 1. Reoperative Laparoscopic reduction of twisted, tight and slipped Humberto fundoplication 2. Laparoscopic lysis of adhesions 3. Wedge excision of the stomach 4. Flexible transoral esophagogastroscopy to assess the fundoplication and presence of leak SALES CONTRACTS ANALYST: Marleen Marie SURGEON: Ophelia Bowie. INDICATIONS FOR THE PROCEDURE: The patient is a 56 year-old female S/P laparoscopic Humberto fundoplication in 05/2016. He reports dysphagia since the operation which has not resolved over time, and has been worsening in the last 4 months. He has lost [address] scan showed to no other abnormalities in the abdomen. The video esophagram showed a tight fundoplication and adequate esophgeal peristalsis. The upper endoscopy showed a tight and intact fundoplication. The gastric emptying showed a t1/2 of 85 minutes. Our plan was to perform a reoperative laparoscopic take down of a tight fundoplication, lysis of adhesions, possible wedge excision of the stomach and a flexible transoral esophagogastroscopy to assess the fundoplication and presence of leak. The risks of the procedure including infection, bleeding, injury to the esophagus, stomach, spleen, postoperative leak, intraoperative cardiac event, postoperative intubation, sepsis, risk of conversion to open procedure, postoperative dysphagia, recurrent hernia and were all explained to the patient. She understood and agreed to proceed. PROCEDURE: The patient was brought to the operating room and was placed on the operating table in the supine position. After undergoing general endotracheal anesthesia, the patient's abdomen was then prepped and draped in the usual sterile fashion. Patient was placed in the reverse Trendelenburg position with the legs spread apart and secured in the leg holders. A small incision was made 2/3 of distance between the xyphoid and the umbilicus. The optic port was used and using an 11 mm port entrance to the abdominal cavity was obtained under direct vision and without injury to the intra-abdominal structures. There were no adhesions in the lower part of the abdomen. One 12 mm port was placed in the left upper quadrant. An 11 mm port was placed in the left flank and a 5 mm port was placed in the right upper quadrant. A 5 mm subxiphoid port was placed and the left lateral segment of the liver was retracted superiorly and to the right. The lesser curvature of the stomach was severely adhered to the liver. This part of the operation was very tedious since the adhesions were very dense and there was no plane of separation between the stomach and the liver. After meticulous and lengthy dissection the adhesions were divided and the lesser curvature of the stomach was from the liver. The patient was found to a twisted and slipped fundoplication which had resulted in a tight fundoplication. We took down of the Humberto fundoplication and brought the posterior wall of the stomach to the left side, to its normal anatomic position. There were no visible stitches between the esophagus and the stomach. The short gastric vessels were divided during the first operation. There were severe adhesion at the level of the posterior wall of the stomach which was adhered to the right amanuel and the liver, which were divided. This resulted in small opening in the fundic mucosa that was repaired with interrupted stitches. The posterior lip of the stomach has inflammatory tissue and stiches attached to it. Therefore, a wedge excision of the stomach was performed. The crural opening was completely closed. There was no evidence of herniation or need for future stiches to close the crural opening. An upper endoscopy was then performed which showed no evidence of esophageal or gastric leak. There was an easy access into the stomach without resistance. Hemostasis was assessed and there was no evidence of bleeding. The Jessica was removed. All ports were removed under direct vision and the skin was closed with subcuticular stitches. The patient tolerated the procedure well and was extubated and transferred to the post-anesthesia recovery room without any complications. I was scrubbed and present for the entire procedure. Extracted from: Title: General Admission H&P * Author: Dyllan Acevedo DO Date: 05/24/17 Impression and Plan Gastroesophageal reflux secondary to hiatal hernia Status post takedown of the Niesen fundoplication Crohn's disease Generalized anxiety Postop care as per Dr. Bowie Patient will be advanced to liquid diet today and will advance as tolerated as per surgery Resume most of the home medications as indicated Nutrition to see patient Antiemetics and pain medications as indicated Discussed with patient the importance of ambulation and incentive spirometry.
--- OUTSIDE RECORDS SUMMARY | 2018-07-11 06:50 | XMS REPORT | CCD ---
Author Author Auto Generated Organization [facility] [place] Address Unknown Phone Unavailable Care Team Providers Care Cyber Security Manager Name Role Phone Aidan Cochran CP Allergies, Adverse Reactions, Alerts Substance Reaction Status NKDA Active Problem List Condition Effective Dates Status Anxiety Resolved Depression Resolved Reflux Resolved
--- OUTSIDE RECORDS SUMMARY | 2018-07-11 06:50 | XMS REPORT | Summary of Care ---
Author Author [facility] Organization [facility] Address Unknown Phone Unavailable Encounter HQ [email or web address]_[email or web address](FIN) [id number] Date(s): 05/23/17 - 05/23/17 [facility] [id number] [place] [address]- [phone] Discharge Disposition: Home or Self Care Attending [...] Cessation Counseling No 1social Assessment and Plan No data available for this section
--- OUTSIDE RECORDS SUMMARY | 2018-07-11 06:50 | XMS REPORT | Continuity of Care Document ---
Author Author [facility] Interface Address Unknown Phone Unavailable Problems Problem Status Onset Date Classification Date Reported Comments Source Headache 08/13/2017 11/13/2017 [facility] [place] R13.10 Active 05/30/2017 [facility] LAP FUNDOPLICATION Active 05/08/2017 [place] K30 Active 05/08/2017 [facility] R13.10, K44.9 Active 05/06/2017 [place] UNK Active 07/22/2012 [place] 553.20 Active 07/22/2012 [facility] DIVERTECULAR DIESEAS 562.10 Active 05/06/2012 [facility] Anxiety Active Problem 06/10/2017 [facility] Depression Active Problem 06/10/2017 [facility] Reflux Resolved Problem 06/10/2017 [facility] [place] [place] Anxiety Active Problem 11/13/2017 [facility], [facility] [place] Depression Active Problem 11/13/2017 [facility] [place] Reflux Resolved Problem 11/13/2017 [facility] [place] Crohn disease Active Problem 11/13/2017 [facility] [place] Dysphagia Active Problem 11/13/2017 [facility] [place] Apnea, sleep Active Problem 11/13/2017 [facility] [place] Final: Dysphagia, unspecified 05/29/2017 [facility] DYSPHAGIA, UNSPECIFIED Active [facility] ABDOMINAL DISTENSION (GASEOUS) Active [facility] Medications Medication Details Route Status Patient Instructions Ordering Provider Order Date Source Famotidine 8 MG/ML Oral Suspension [Pepcid] 40 mg, 2 tab, Route: PO, Drug form: TAB, Daily, Dosing Weight 69.864, kg, Start date: 05/27/17 9:00:00 [employer] HR MANAGER, Duration: 30 day, Stop date: 06/25/17 9:00:00 CSTNotes: (Same as: Pepcid) No Longer Active 05/27/2017 [facility] Famotidine 8 MG/ML Oral Suspension [Pepcid] 40 mg=5 mL, PO, Daily, # 150 mL, 0 Refill(s) Active 05/26/2017 [facility] Tylenol with Codeine 120 mg-12 mg/5 mL oral liquid 10 mL, PO, Q6H, PRN Pain Score 1-3, # 240 mL, 0 Refill(s) No Longer Active 05/26/2017 [facility] Tylenol with Codeine 120 mg-12 mg/5 mL oral liquid 10 ml, Route: PO, Drug Form: LIQ, Dosing Weight 69.864, kg, Q6H, PRN Pain Score 1-3, Start date: 05/26/17 10:06:00 PLANT HR MANAGER, Duration: 5 day, Stop date: 05/31/17 10:05:00 CSTNotes: (acetaminophen-codeine 120-12 mg/5 ml oral liq) Do not exceed 4gm/day of acetaminophen. (Same as: Tylenol w/Codeine) Inactive 05/26/2017 [facility] Pepcid 20 mg, 2 mL, Route: IVP, Drug form: INJ, Q12H, Dosing Weight 69.864, kg, Start date: 05/26/17 9:00:00 PLANT HR MANAGER, Duration: 30 day, Stop date: 06/24/17 21:00:00 CSTNotes: (Same as: Pepcid) Can be dilute in 5-10cc NS IVP: Slow IV push over at least 2 minutes. Inactive 05/26/2017 [facility] ketOROLAC 15 mg/mL injectable solution 15 mg, 1 mL, Route: IV, Drug form: INJ, Q6Hnow, Dosing Weight 69.864, kg, Start date: 05/25/17 22:00:00 PLANT HR MANAGER, Duration: 2 day, Stop date: 05/27/17 16:00:00 CSTNotes: (Same as:Toradol) IV bolus must be given >15 seconds. Give IM administration slowly and deeply into the muscle. Not for use > 4 days. No Longer Active 05/26/2017 [facility] ketOROLAC 30 mg/mL injectable solution 30 mg, 1 mL, Route: IV, Drug form: INJ, ONCE, Dosing Weight 69.864, kg, Start date: 05/25/17 15:38:00 PLANT HR MANAGER, Stop date: 05/25/17 15:38:00 CSTNotes: (Same as:Toradol) IV bolus must be given >15 seconds. Give IM administration slowly and deeply into the muscle. Not for use > 4 days MEDICATION WASTE Product Size: 30 mg Product Wasted: ___ mg Inactive 05/25/2017 [facility] Zosyn 3.375 gm, Route: IVPB, ABXQ6H, Dosing Weight 69.864, kg, Start date: 05/25/17 14:00:00 PLANT HR MANAGER, Duration: 10 day, Stop date: 06/04/17 8:00:00 PLANT HR MANAGER, ABX Indication: Other (specify in Comments)Notes: (Same as: Zosyn) Dosing based on Piperacillin component MEDICATION WASTE Product Size: 3375 mg Product Wasted: ___ mg No Longer Active 05/25/2017 [facility] Omnipaque 300 50 ml, Route: PO, Drug Form: SOLN, Dosing Weight 69.864, kg, ONCE, Start date: 05/25/17 13:17:00 PLANT HR MANAGER, Stop date: 05/25/17 13:17:00 CSTNotes: (Same as:Omnipaque 300). WASTE: F/P - Black; E - Municipal Trash Bin Inactive 05/25/2017 [facility] Lialda 4.8 gm, Route: PO, Drug form: ECTAB, Daily, Dosing Weight 69.864, kg, Start date: 05/25/17 9:00:00 PLANT HR MANAGER, Duration: 30 day, Stop date: 06/23/17 9:00:00 PLANT HR MANAGER No Longer Active 05/25/2017 [facility] Budesonide 9 mg, 3 cap, Route: PO, Drug form: ERCAP, Daily, Dosing Weight 69.864, kg, Start date: 05/25/17 9:00:00 PLANT HR MANAGER, Duration: 30 day, Stop date: 06/23/17 9:00:00 CSTNotes: (Same As: Entocort EC or Budesonide 3 mg EC / ERC) "Do Not Crush" No Longer Active 05/25/2017 [facility] Tylenol with Codeine 120 mg-12 mg/5 mL oral liquid 15 ml, Route: PO, Drug Form: LIQ, Dosing Weight 69.864, kg, Q4H, PRN Pain Score 4-6, Start date: 05/25/17 5:51:00 PLANT HR MANAGER, Duration: 30 day, Stop date: 06/24/17 5:50:00 CSTNotes: (acetaminophen-codeine 120-12 mg/5 ml oral liq) Do not exceed 4gm/day of acetaminophen. (Same as: Tylenol w/Codeine) No Longer Active 05/25/2017 [facility] *ATTN RN please bring pt home med to pharmacy to be labeled* *ATTN RN please bring pt home med to pharmacy to be labeled*, ATTN RN, Drug form: MISC, Route: MISC, QSHIFT, 05/25/17 0:00:00 PLANT HR MANAGER, Duration: 30 day, Stop date: 06/23/17 16:00:00 PLANT HR MANAGER No Longer Active 05/25/2017 [facility] heparin 5,000 unit, 1 mL, Route: SUB-Q, Drug form: INJ, Q12H, Dosing Weight 69.864, kg, Start date: 05/24/17 23:00:00 PLANT HR MANAGER, Duration: 30 day, Stop date: 06/23/17 11:00:00 CSTNotes: porcine heparin Inactive 05/25/2017 [facility] budesonide 3 mg oral capsule, extended release 9 mg=3 cap, PO, Daily, # 270 cap, 0 Refill(s) Active 05/25/2017 [facility] Albuterol 0.83 MG/ML Inhalant Solution 2.5 mg, 3.01 mL, Route: INHALATION, Drug form: SOLN, RQ6H, Dosing Weight 69.864, kg, Start date: 05/24/17 20:00:00 PLANT HR MANAGER, Duration: 30 day, Stop date: 06/23/17 14:00:00 CSTNotes: SEE RT DOCUMENTATION (Same as: Proventil) Inactive 05/25/2017 [facility] heparin 5,000 unit, 1 mL, Route: SUB-Q, Drug form: INJ, Q12H, Dosing Weight 69.864, kg, Start date: 05/24/17 20:00:00 PLANT HR MANAGER, Duration: 30 day, Stop date: 06/23/17 8:00:00 CSTNotes: porcine heparin No Longer Active 05/25/2017 [facility] Albuterol 0.83 MG/ML Inhalant Solution 2.49 mg, 3 mL, Route: NEB, Drug form: SOLN, RQ4H, Dosing Weight 69.864, kg, Start date: 05/24/17 19:00:00 PLANT HR MANAGER, Duration: 30 day, Stop date: 06/23/17 15:00:00 CSTNotes: SEE RT DOCUMENTATION (Same as: Proventil) Inactive 05/25/2017 [facility] Albuterol 0.83 MG/ML Inhalant Solution 2.5 mg, Route: INHALATION, Q6H, Dosing Weight 69.864, kg, Start date: 05/24/17 18:00:00 PLANT HR MANAGER, Duration: 30 day, Stop date: 06/23/17 12:00:00 PLANT HR MANAGER Inactive 05/25/2017 [facility] Cefoxitin 1 gm, Route: IVP, ABXQ6H, Dosing Weight 69.864, kg, Start date: 05/24/17 17:00:00 PLANT HR MANAGER, Duration: 24 hr, Stop date: 05/25/17 10:00:00 PLANT HR MANAGER, ABX Indication: Surgical ProphylaxisNotes: (Same As: Mefoxin) No Longer Active 05/24/2017 [facility] Morphine 4 mg, Route: IVP, Q4H, Dosing Weight 69.864, kg, PRN Pain Score 1-5, Start date: 05/24/17 16:39:00 PLANT HR MANAGER, Duration: 30 day, Stop date: 06/23/17 16:38:00 PLANT HR MANAGER Inactive 05/24/2017 [facility] Sodium Chloride 0.9% IV 1,000 mL 1,000 mL, Rate: 75 ml/hr, Infuse over: 13.3 hr, Route: IV, Dosing Weight 69.864 kg, Total Volume: 1,000, Start date: 05/24/17 16:39:00 PLANT HR MANAGER, Duration: 30 day, Stop date: 06/23/17 16:38:00 PLANT HR MANAGER, 1.83, m2 Inactive 05/24/2017 [facility] Clonazepam 1 mg, 1 tab, Route: PO, Drug form: TAB, TID, Dosing Weight 69.864, kg, PRN Anxiety, Start date: 05/24/17 14:56:00 PLANT HR MANAGER, Duration: 30 day, Stop date: 06/23/17 14:55:00 CSTNotes: (Same As: KlonoPIN) No Longer Active 05/24/2017 [facility] Zofran 4 mg, 2 mL, Route: IVP, Drug form: INJ, Q6H, Dosing Weight 69.864, kg, PRN Nausea, Start date: 05/24/17 14:51:00 PLANT HR MANAGER, Duration: 30 day, Stop date: 06/23/17 14:50:00 CSTNotes: (Same as: Zofran) MEDICATION WASTE Product Size: 4 mg Product Wasted: ___ mg No Longer Active 05/24/2017 [facility] Tylenol 650 mg, 20.3 mL, Route: PO, Drug form: LIQ, Q6H, Dosing Weight 69.864, kg, PRN Pain 1-3/Temp > 100.4 F, Start date: 05/24/17 14:51:00 PLANT HR MANAGER, Duration: 30 day, Stop date: 06/23/17 14:50:00 CSTNotes: Max [id number]=4446fv/day (4 gm/day). (Same as: Tylenol) No Longer Active 05/24/2017 [facility] Tylenol with Codeine 120 mg-12 mg/5 mL oral liquid 15 ml, Route: PO, Drug Form: LIQ, Dosing Weight 69.864, kg, Q6H, PRN Pain Score 4-6, Start date: 05/24/17 14:51:00 PLANT HR MANAGER, Duration: 30 day, Stop date: 06/23/17 14:50:00 CSTNotes: (acetaminophen-codeine 120-12 mg/5 ml oral liq) Do not exceed 4gm/day of acetaminophen. (Same as: Tylenol w/Codeine) No Longer Active 05/24/2017 [facility] Albuterol 0.83 MG/ML Inhalant Solution 2.49 mg, 3 mL, Route: NEB, Drug form: SOLN, PRN, Dosing Weight 69.864, kg, PRN Respiratory Protocol, Start date: 05/24/17 14:51:00 PLANT HR MANAGER, Duration: 30 day, Stop date: 06/23/17 14:50:00 CSTNotes: SEE RT DOCUMENTATION (Same as: Proventil) No Longer Active 05/24/2017 [facility] Morphine 4 mg, 2 mL, Route: IVP, Drug form: SOLN, Q4H, Dosing Weight 69.864, kg, PRN Pain Score 7-10, Start date: 05/24/17 14:50:00 PLANT HR MANAGER, Stop date: 06/23/17 14:49:00 PLANT HR MANAGER No Longer Active 05/24/2017 [facility] Sodium Chloride 0.9% IV 1,000 mL 1,000 mL, Rate: 75 ml/hr, Infuse over: 13.3 hr, Route: IV, Dosing Weight 69.864 kg, Total Volume: 1,000, Start date: 05/24/17 13:42:00 PLANT HR MANAGER, Duration: 30 day, Stop date: 06/23/17 13:41:00 PLANT HR MANAGER, 1.83, m2 No Longer Active 05/24/2017 [facility] Magnesium Sulfate 2 gm, 50 mL, Route: IVPB, Drug form: INJ, ONCE, Dosing Weight 69.864, kg, Start date: 05/24/17 13:38:00 PLANT HR MANAGER, Stop date: 05/24/17 13:38:00 CSTNotes: WASTE: F/P - Sink; E - Municipal Trash Bin Inactive 05/24/2017 [facility] Fentanyl 50 microgram, Route: IVP, ONCE, Dosing Weight 69.864, kg, Priority: STAT, Start date: 05/24/17 12:35:00 PLANT HR MANAGER, Stop date: 05/24/17 12:35:00 PLANT HR MANAGER Inactive 05/24/2017 [facility] Morphine 4 mg, Route: IVP, ONCE, Dosing Weight 69.864, kg, Priority: NOW, Start date: 05/24/17 11:16:00 PLANT HR MANAGER, Stop date: 05/24/17 11:16:00 PLANT HR MANAGER Inactive 05/24/2017 [facility] neostigmine (ANES) Route: IV, Drug form: INJ, ONCE, Stop date: 05/24/17 11:15:00 PLANT HR MANAGER Inactive 05/24/2017 [facility] Hydromorphone 0.5 mg, Route: IVP, Q5Min, Dosing Weight 69.864, kg, PRN Pain Score 7-10, Start date: 05/24/17 11:11:00 PLANT HR MANAGER, Duration: 4 doses or times, Stop date: Limited # of times Inactive 05/24/2017 [facility] Fentanyl 50 microgram, Route: IVP, Q5Min, Dosing Weight 69.864, kg, PRN Pain Score 7-10, Priority: Routine, Start date: 05/24/17 11:11:00 PLANT HR MANAGER, Duration: 2 doses or times, Stop date: Limited # of times Inactive 05/24/2017 [facility] Flumazenil 0.2 mg, Route: IVP, PRN, Dosing Weight 69.864, kg, PRN Benzodiazepine Reversal, Initial dose, Start date: 05/24/17 11:11:00 PLANT HR MANAGER, Duration: 30 day, Stop date: 06/23/17 11:10:00 PLANT HR MANAGER Inactive 05/24/2017 [facility] Naloxone 0.4 mg, Route: IVP, Q2MIN, Dosing Weight 69.864, kg, PRN Narcotic Reversal, Start date: 05/24/17 11:11:00 PLANT HR MANAGER, Duration: 8 doses or times, Stop date: Limited # of times Inactive 05/24/2017 [facility] Albuterol 0.83 MG/ML Inhalant Solution 2.49 mg, Route: NEB, Q20Min, Dosing Weight 69.864, kg, PRN Wheezing, Priority: Routine, Start date: 05/24/17 11:11:00 PLANT HR MANAGER, Duration: 30 day, Stop date: 06/23/17 11:10:00 PLANT HR MANAGER Inactive 05/24/2017 [facility] Diphenhydramine 12.5 mg, Route: IVP, Drug form: INJ, Q6H, Dosing Weight 69.864, kg, PRN Itching, Start date: 05/24/17 11:11:00 PLANT HR MANAGER, Duration: 30 day, Stop date: 06/23/17 11:10:00 PLANT HR MANAGER Inactive 05/24/2017 [facility] Meperidine 12.5 mg, Route: IVP, Q30Min, Dosing Weight 69.864, kg, PRN Other -See Comment, For shivering, Start date: 05/24/17 11:11:00 PLANT HR MANAGER, Duration: 2 doses or times, Stop date: Limited # of times Inactive 05/24/2017 [facility] Ondansetron 4 mg, Route: IVP, ONCE, Dosing Weight 69.864, kg, PRN Nausea & Vomiting, Start date: 05/24/17 11:11:00 PLANT HR MANAGER Inactive 05/24/2017 [facility] Promethazine 6.25 mg, Route: IVPB, ONCE, Dosing Weight 69.864, kg, PRN Nausea & Vomiting, Start date: 05/24/17 11:11:00 PLANT HR MANAGER Inactive 05/24/2017 [facility] Hydralazine 10 mg, Route: IVP, Q20Min, Dosing Weight 69.864, kg, PRN Elevated BP, Start date: 05/24/17 11:11:00 PLANT HR MANAGER, Duration: 2 doses or times, Stop date: Limited # of times Inactive 05/24/2017 [facility] Labetalol 10 mg, Route: IVP, Q5Min, Dosing Weight 69.864, kg, PRN Elevated BP, Start date: 05/24/17 11:11:00 PLANT HR MANAGER, Duration: 5 doses or times, Stop date: Limited # of times Inactive 05/24/2017 [facility] Acetaminophen 1,000 mg, Route: PO, Drug form: TAB, ONCE, Dosing Weight 69.864, kg, PRN Pain Score 1-3, Start date: 05/24/17 11:11:00 PLANT HR MANAGER Inactive 05/24/2017 [facility] Ketorolac 30 mg, Route: IVP, ONCE, Dosing Weight 69.864, kg, Start date: 05/24/17 11:11:00 PLANT HR MANAGER, Stop date: 05/24/17 11:11:00 PLANT HR MANAGER Inactive 05/24/2017 [facility] Oxycodone 5 mg, Route: PO, Drug form: TAB, Q4H, Dosing Weight 69.864, kg, PRN Pain Score 4-6, Start date: 05/24/17 11:11:00 PLANT HR MANAGER, Duration: 30 day, Stop date: 06/23/17 11:10:00 PLANT HR MANAGER Inactive 05/24/2017 [facility] ePHEDrine (ANES) Route: IV, Drug form: INJ, ONCE, Stop date: 05/24/17 10:35:00 PLANT HR MANAGER Inactive 05/24/2017 [facility] ondansetron (ANES) Route: IV, Drug form: INJ, ONCE, Stop date: 05/24/17 10:35:00 PLANT HR MANAGER Inactive 05/24/2017 [facility] dexamethasone (ANES) Route: IV, Drug form: INJ, ONCE, Stop date: 05/24/17 10:35:00 PLANT HR MANAGER Inactive 05/24/2017 [facility] acetaminophen (ANES) Route: IV, Drug form: INJ, ONCE, Stop date: 05/24/17 10:35:00 PLANT HR MANAGER Inactive 05/24/2017 [facility] glycopyrrolate (ANES) Route: IV, Drug form: INJ, ONCE, Stop date: 05/24/17 9:35:00 PLANT HR MANAGER Inactive 05/24/2017 [facility] cefOXitin (ANES) Route: IV, Drug form: INJ, ONCE, Stop date: 05/24/17 9:35:00 PLANT HR MANAGER Inactive 05/24/2017 [facility] metoclopramide (ANES) Route: IV, Drug form: INJ, ONCE, Stop date: 05/24/17 9:25:00 PLANT HR MANAGER Inactive 05/24/2017 [facility] famotidine (ANES) Route: IV, Drug form: INJ, ONCE, Stop date: 05/24/17 9:25:00 PLANT HR MANAGER Inactive 05/24/2017 [facility] lidocaine (ANES) Route: IV, Drug form: INJ, ONCE, Stop date: 05/24/17 9:20:00 PLANT HR MANAGER Inactive 05/24/2017 [facility] fentaNYL (ANES) Route: IV, Drug form: INJ, ONCE, Stop date: 05/24/17 9:20:00 PLANT HR MANAGER Inactive 05/24/2017 [facility] rocuronium (ANES) Route: IV, Drug form: INJ, ONCE, Stop date: 05/24/17 9:20:00 PLANT HR MANAGER Inactive 05/24/2017 [facility] propofol (ANES) Route: IV, Drug form: INJ, ONCE, Stop date: 05/24/17 9:20:00 PLANT HR MANAGER Inactive 05/24/2017 [facility] scopolamine (ANES) Route: IV, Drug form: ERFILM, ONCE, Stop date: 05/24/17 9:15:00 PLANT HR MANAGER Inactive 05/24/2017 [facility] midazolam (ANES) Route: IV, Drug form: SOLN, ONCE, Stop date: 05/24/17 9:15:00 PLANT HR MANAGER Inactive 05/24/2017 [facility] Sodium Chloride 0.9% IV (ANES) 1000 mL Route: IV, Total Volume: 1,000, Start date: 05/24/17 8:28:00 PLANT HR MANAGER, Stop date: 05/24/17 9:28:00 PLANT HR MANAGER Inactive 05/24/2017 [facility] Lactated Ringers Injection IV (ANES) 1000 mL Route: IV, Total Volume: 1,000, Start date: 05/24/17 8:19:00 PLANT HR MANAGER, Stop date: 05/24/17 9:19:00 PLANT HR MANAGER Inactive 05/24/2017 [facility] heparin sodium, porcine 2500 UNT/ML Injectable Solution 5,000 unit, Route: SUB-Q, Drug form: INJ, ONCALL, Dosing Weight 69.864, kg, Start date: 05/24/17 8:00:00 PLANT HR MANAGER, Duration: 30 day, Stop date: 06/23/17 7:59:00 PLANT HR MANAGER Inactive 05/24/2017 [facility] Sodium Chloride 0.9% IV 1000 mL 1,000 mL, Rate: 25 ml/hr, Infuse over: 40 hr, Route: IV, Dosing Weight 69.864 kg, Total Volume: 1,000, Start date: 05/24/17 7:02:00 PLANT HR MANAGER, Duration: 30 day, Stop date: 06/23/17 7:01:00 PLANT HR MANAGER, 1.83, m2 Inactive 05/24/2017 [facility] Calcium Chloride 0.0014 MEQ/ML / Potassium Chloride 0.004 MEQ/ML / Sodium Chloride 0.103 MEQ/ML / Sodium Lactate 0.028 MEQ/ML Injectable Solution 1,000 mL, Rate: 25 ml/hr, Infuse over: 40 hr, Route: IV, Dosing Weight 69.864 kg, Total Volume: 1,000, Start date: 05/24/17 7:02:00 PLANT HR MANAGER, Duration: 30 day, Stop date: 06/23/17 7:01:00 PLANT HR MANAGER, 1.83, m2 Inactive 05/24/2017 [facility] Acetaminophen 325 MG / Hydrocodone Bitartrate 10 MG Oral Tablet [[place] 10/325] 1 tab, PO, Q6H, PRN for pain, # 24 tab, 0 Refill(s) Active 05/23/2017 [facility] mesalamine 1200 MG Enteric Coated Tablet [Lialda] 4.8 gm=4 tab, PO, Daily, # 224 tab, 0 Refill(s) Active 05/23/2017 [facility] Clonazepam 1 mg, PO, TID, 0 Refill(s) Active 05/23/2017 [facility] Budesonide 12 mg, PO, Daily, 0 Refill(s) No Longer Active 05/23/2017 [facility] Esomeprazole Magnesium (Nexium) 20 Mg Capsule., Oral Daily Active 05/26/2016 [facility] Sucralfate 1 Gm Tablet, 1 Gm Oral Four Times Daily Active 05/26/2016 [facility] Alprazolam (Xanax) 0.5 Mg Tablet, Oral Twice A Day Active 05/25/2016 [facility] Budesonide (Budesonide Ec) 3 Mg Capdr...er Three Times A Day Active [facility] Clonazepam 0.5 Mg Tablet As Needed Active [facility] Meloxicam 7.5 Mg Tablet Daily Active [facility] Mesalamine (Lialda) 1.2 Gm Tablet.dr Four Times Daily Active [facility] Propranolol Hcl 10 Mg Tablet Twice A Day Active [facility] Allergies, Adverse Reactions, Alerts Substance Category Reaction Severity Reaction type Status Date Reported Comments Source Immunizations Immunization Date Given Site Status Last Updated Comments Source Results Order Name Results Value Reference Range Date Interpretation Comments Source Chest 2 views DX Chest 2 views DX EXAM: XR CHEST 2 VIEWS DATE: 05/30/2018 13:46 PLANT HR MANAGER INDICATION: - cough COMPARISON: 05/12/2018 TECHNIQUE: PA and lateral chest radiographs FINDINGS: There is been partial resolution of airspace opacities in the right lower lobe. No other lung parenchymal or pleural abnormalities are seen. Mai and pulmonary vasculature are normal. Cardiomediastinal silhouette is normal in appearance. No acute bony abnormality is identified. Partially visualized anterior cervical spine fusion hardware is again seen. Surgical tendon fixation anchors again seen in the left humeral head. Surgical clips are seen in the right upper quadrant of the abdomen. IMPRESSION: Partial resolution of airspace opacities in the right lower lobe likely from resolving pneumonia. Another follow-up chest x-ray in several weeks to be recommended to ensure complete resolution radiographically. 05/30/2018 - - Read by: Mariano Skinner MD Dictated Date/time: 05/30/18 14:01 Electronically Signed by: Mariano Skinner MD 05/30/18 14:03 FINAL REPORT [facility] Chest 2 views DX Chest 2 views DX Exam: Two-view chest x-ray Reason for Exam: - J15.5 Pneumonia due to Escherichia coli; J91.8 Pleural effusion in other conditions classified elsewhere Comparison Exam: X-ray 05/26/2017 Discussion: Cardiomediastinal silhouette is within normal limits. Both hemidiaphragms well visualized. No pulmonary edema or pleural effusions. Ill-defined airspace consolidation seen overlying the right lower lung. Correlate for infectious etiology. Trachea is midline. No acute bony abnormalities. Impression: 1. Ill-defined airspace consolidation seen overlying the right lower lung. Correlate for infectious etiology. 05/12/2018 - - Read by: Kem Vogel MD Dictated Date/time: 05/12/18 16:41 Electronically Signed by: Kem Vogel MD 05/12/18 16:42 FINAL REPORT [facility] [place] Automated blood basophil count (count/volume) Automated blood basophil count (count/volume) 0.1 0.0 - 0.1 10/26/2017 [facility] Automated blood basophil count as percentage of total leukocytes Automated blood basophil count as percentage of total leukocytes 1.1 0.0 - 1.0 10/26/2017 [facility] Automated blood eosinophil count Automated blood eosinophil count 0.7 0.0 - 0.4 10/26/2017 [facility] Automated blood eosinophil count as percentage of total leukocytes Automated blood eosinophil count as percentage of total leukocytes 11.2 0.0 - 6.0 10/26/2017 [facility] Automated blood hematocrit (volume fraction) Automated blood hematocrit (volume fraction) 43.8 38.2 - 49.6 10/26/2017 [facility] Automated blood lymphocyte count as percentage ot total leukocytes Automated blood lymphocyte count as percentage ot total leukocytes 31.2 18.0 - 39.1 10/26/2017 [facility] Automated blood monocyte count as percentage of total leukocytes Automated blood monocyte count as percentage of total leukocytes 9.1 4.4 - 11.3 10/26/2017 [facility] Automated blood neutrophil count Automated blood neutrophil count 3.0 2.1 - 6.9 10/26/2017 [facility] Automated blood platelet count (count/volume) Automated blood platelet count (count/volume) 219 140 - 360 10/26/2017 [facility] Automated blood segmented neutrophil count as percentage of total leukocytes Automated blood segmented neutrophil count as percentage of total leukocytes 47.1 38.7 - 80.0 10/26/2017 [facility] Automated erythrocyte mean corpuscular hemoglobin (mass per erythrocyte) Automated erythrocyte mean corpuscular hemoglobin (mass per erythrocyte) 30.2 28 - 32 10/26/2017 [facility] Automated erythrocyte mean corpuscular hemoglobin concentration measurement (mass/volume) Automated erythrocyte mean corpuscular hemoglobin concentration measurement (mass/volume) 34.0 31 - 35 10/26/2017 [facility] Automated erythrocyte mean corpuscular volume Automated erythrocyte mean corpuscular volume 88.8 81 - 99 10/26/2017 [facility] Automated urine sediment leukocyte count by microscopy (number/high power field) Automated urine sediment leukocyte count by microscopy (number/high power field) null 0 - 5 10/26/2017 [facility] Bacteria detection in urine sediment by light microscopy Bacteria detection in urine sediment by light microscopy FEW NONE 10/26/2017 [facility] Blood erythrocytes automated count (number/volume) Blood erythrocytes automated count (number/volume) 4.93 4.3 - 5.7 10/26/2017 [facility] Blood hemoglobin measurement (moles/volume) Blood hemoglobin measurement (moles/volume) 14.9 14.0 - 18.0 10/26/2017 [facility] Blood leukocytes automated count (number/volume) Blood leukocytes automated count (number/volume) 6.45 4.8 - 10.8 10/26/2017 [facility] Blood lymphocytes count (number/volume) Blood lymphocytes count (number/volume) 2.0 1.0 - 3.2 10/26/2017 [facility] Blood monocytes automated count (number/volume) Blood monocytes automated count (number/volume) 0.6 0.2 - 0.8 10/26/2017 [facility] Epithelial cells detection in urine sediment by light microscopy Epithelial cells detection in urine sediment by light microscopy FEW NONE 10/26/2017 [facility] Erythrocytes detection in urine sediment by light microscopy Erythrocytes detection in urine sediment by light microscopy null 0 - 5 10/26/2017 [facility] Estimated glomerular filtration rate (GFR) determination Estimated glomerular filtration rate (GFR) determination null 60 10/26/2017 [facility] [facility] Glucose measurement Glucose measurement 92 74 - 118 10/26/2017 [facility] Hyaline casts detection in urine sediment by light microscopy Hyaline casts detection in urine sediment by light microscopy null 0 - 1 10/26/2017 [facility] Plasma globulin measurement (mass/volume) Plasma globulin measurement (mass/volume) 3.6 2.3 - 3.5 10/26/2017 [facility] Serum or plasma alanine aminotransferase measurement (enzymatic activity/volume) Serum or plasma alanine aminotransferase measurement (enzymatic activity/volume) 25 0 - 55 10/26/2017 [facility] Serum or plasma albumin measurement (mass/volume) Serum or plasma albumin measurement (mass/volume) 4.0 3.5 - 5.0 10/26/2017 [facility] Serum or plasma albumin/globulin mass ratio Serum or plasma albumin/globulin mass ratio 1.1 0.8 - 2.0 10/26/2017 [facility] Serum or plasma alkaline phosphatase measurement (enzymatic activity/volume) Serum or plasma alkaline phosphatase measurement (enzymatic activity/volume) 85 40 - 150 10/26/2017 [facility] Serum or plasma anion gap Serum or plasma anion gap 12.8 8 - 16 10/26/2017 [facility] Serum or plasma calcium measurement (mass/volume) Serum or plasma calcium measurement (mass/volume) 9.5 8.4 - 10.2 10/26/2017 [facility] Serum or plasma carbon dioxide, total measurement (moles/volume) Serum or plasma carbon dioxide, total measurement (moles/volume) 25 22 - 29 10/26/2017 [facility] Serum or plasma chloride measurement (moles/volume) Serum or plasma chloride measurement (moles/volume) 100 98 - 107 10/26/2017 [facility] Serum or plasma creatinine measurement (mass/volume) Serum or plasma creatinine measurement (mass/volume) 1.00 0.72 - 1.25 10/26/2017 [facility] Serum or plasma lipase measurement (enzymatic activity/volume) Serum or plasma lipase measurement (enzymatic activity/volume) 15 8 - 78 10/26/2017 [facility] Serum or plasma potassium measurement (moles/volume) Serum or plasma potassium measurement (moles/volume) 3.8 3.5 - 5.1 10/26/2017 [facility] Serum or plasma protein measurement (mass/volume) Serum or plasma protein measurement (mass/volume) 7.6 6.5 - 8.1 10/26/2017 [facility] Serum or plasma sodium measurement (moles/volume) Serum or plasma sodium measurement (moles/volume) 134 136 - 145 10/26/2017 [facility] Serum or plasma total bilirubin measurement (mass/volume) Serum or plasma total bilirubin measurement (mass/volume) 0.6 0.2 - 1.2 10/26/2017 [facility] Serum or plasma urea nitrogen measurement (mass/volume) Serum or plasma urea nitrogen measurement (mass/volume) 14 7 - 26 10/26/2017 [facility] Serum or plasma urea nitrogen/creatinine mass ratio Serum or plasma urea nitrogen/creatinine mass ratio 14 6 - 25 10/26/2017 [facility] Specific gravity of Urine by Test strip Specific gravity of Urine by Test strip 1.030 1.010 - 1.025 10/26/2017 [facility] Urine clarity Urine clarity SL CLOUDY CLEAR 10/26/2017 [facility] Urine color determination Urine color determination YELLOW YELLOW 10/26/2017 [facility] Urine erythrocytes detection Urine erythrocytes detection TRACE NEGATIVE 10/26/2017 [facility] Urine glucose detection Urine glucose detection NEGATIVE NEGATIVE 10/26/2017 [facility] Urine ketones detection by automated test strip Urine ketones detection by automated test strip NEGATIVE NEGATIVE 10/26/2017 [facility] Urine leukocyte esterase detection by dipstick Urine leukocyte esterase detection by dipstick NEGATIVE NEGATIVE 10/26/2017 [facility] Urine nitrite detection Urine nitrite detection NEGATIVE NEGATIVE 10/26/2017 [facility] Urine pH measurement by automated test strip Urine pH measurement by automated test strip 6 5 - 7 10/26/2017 [facility] Urine protein measurement by test strip (mass/volume) Urine protein measurement by test strip (mass/volume) TRACE NEGATIVE 10/26/2017 [facility] Urine total bilirubin measurement (mass/volume) Urine total bilirubin measurement (mass/volume) NEGATIVE NEGATIVE 10/26/2017 [facility] Urine urobilinogen measurement by test strip (mass/volume) Urine urobilinogen measurement by test strip (mass/volume) 0.2 0.2 - 1 10/26/2017 [facility] Red Cell Distribution Width 12.1 11.7 - 14.4 10/26/2017 [facility] IM GRANULOCYTES % 0.3 0.0 - 1.0 10/26/2017 [facility] Absolute Immature Granulocyte (auto 0.02 0 - 0.1 10/26/2017 [facility] Aspartate Amino Transf (AST/SGOT) 20 5 - 34 10/26/2017 [facility] Brain w/wo contrast MRI Brain w/wo contrast MRI PATIENT NAME: PALMIRA GANDARA : 1960; Age: 57 years y/o Male MR: [id number] STUDY: Brain w/wo contrast MRI 08/07/2017 2:12 PM [employer] ORDERING PHYSICIAN: Aidan Cochran MD CLINICAL INDICATION: G44.1 Vascular headache, not elsewhere classified - G44.1 Vascular headache, not elsewhere classified; COMPARISON: None TECHNIQUE : Multiplanar imaging of the brain was obtained both prior to and after uncomplicated IV administration of 15 mL Dotarem. FINDINGS: BRAIN PARENCHYMA: There is no hemorrhage, mass lesion, extra axial collection, cerebral edema, or mass effect. Diffusion sequences are normal. Brain volume is age-appropriate. There is no focal cavazos or white matter signal abnormality. The cerebellar tonsils are above foramen magnum. The pituitary gland is age- appropriate. There is no abnormal enhancement. CEREBELLOPONTINE REGIONS AND SKULL BASE: The cerebellopontine angles appear unremarkable. No skull base abnormality is seen. VENTRICLES/SULCI/CISTERNS: The ventricles are normal in size and configuration. The basal cisterns are patent. VISUALIZED VESSELS: Major intracranial flow voids are preserved. ORBITS, VISUALIZED PARANASAL SINUSES AND MASTOIDS: There is mild ethmoid mucosal thickening. The remainder the paranasal sinuses appear clear. The mastoid air cells are clear. No orbital pathology is seen. IMPRESSION: Normal brain Mild ethmoid mucosal thickening 08/07/2017 - - Read by: Milton Marshall MD Dictated Date/time: 08/07/17 17:08 Electronically Signed by: Milton Marshall MD 08/07/17 17:12 FINAL REPORT [facility] Barium Swallow w Esophagus Function DX Barium Swallow w Esophagus Function DX Barium Swallow w Esophagus Function DX COMPARISON: 05/08/2017 CLINICAL HISTORY: fl time 3.8 min, dose 54.72 mGy, dap 11.697 Gycm2, Dr. Baker - R13.10 Dysphagia, unspecified. Status post takedown of Humberto fundoplication TECHNIQUE: Thin barium was utilized for recumbent prone oblique and LPO images. Thick barium was utilized for upright imaging of the esophagus. Granola bar mixed with barium was given to evaluate motility with solids. FINDINGS: Prone and LPO images of the esophagus reveal moderate to severe delay in passage of barium from the esophagus to the stomach. No evidence for hiatal hernia. Upright images with thick barium reveal mild delay in clearance of barium from the esophagus to the stomach. No mass lesions or strictures are visualized. [id number] gastroesophageal reflux. Single bolus of soft cracker mixed with barium was administered.. Patient is unable to spontaneously pass the solid bolus from the distal esophagus. Patient is able to clear the solid bolus following additional administration of thin barium. Overhead image performed at the conclusion of the procedure reveals prompt passage of the barium from the stomach into the small bowel. IMPRESSION: Moderate to severe delay in clearance of barium on the recumbent images but only mild delay in passage of barium on the upright images. No evidence for hernia or stricture. [id number] gastroesophageal reflux. Patient is able to clear the solid bolus from the distal esophagus following ingestion of thin barium. SL: [id number] 06/07/2017 - - Read by: Yusef Baker MD Dictated Date/time: 06/07/17 13:25 Electronically Signed by: Yusef Baker MD 06/07/17 14:08 FINAL REPORT [facility] CHEM PANEL Bili Direct 0.2 mg/dL 0.0 - 0.3 05/26/2017 [facility] CHEM PANEL Albumin Lvl 2.9 g/dL 3.5 - 5.0 05/26/2017 [facility] CHEM PANEL Bili Total 0.7 mg/dL 0.2 - 1.3 05/26/2017 [facility] CHEM PANEL ALT 700 unit/L 0 - 65 05/26/2017 [facility] CHEM PANEL Alk Phos 62 unit/L 39 - 136 05/26/2017 [facility] CHEM PANEL Total Protein 5.8 g/dL 6.4 - 8.4 05/26/2017 [facility] CHEM PANEL AST 490 unit/L 0 - 37 05/26/2017 [facility] CHEM PANEL Bili Indirect 0.5 mg/dL 0.0 - 1.0 05/26/2017 [facility]M PANEL A/G Ratio 1.0 0.7 - 1.6 05/26/2017 [facility]M PANEL Globulin 2.9 g/dL 2.7 - 4.2 05/26/2017 [facility] CHEM PANEL eGFR 105 mL/min/1.73m2 05/26/2017 Result Comment: The eGFR is calculated using the [...] from the National Kidney Disease Education Program (NKDEP) which additionally recommends that when the eGFR is used in patients with extremes of body mass index for purposes of drug dosing, the eGFR should be multiplied by the estimated BMI. [facility] CHEM PANEL CO2 26 meq/L 24 - 32 05/26/2017 [facility] CHEM PANEL Calcium Lvl 8.3 mg/dL 8.5 - 10.5 05/26/2017 [facility]M PANEL Potassium Lvl 4.3 meq/L 3.5 - 5.1 05/26/2017 [facility] CHEM PANEL Chloride Lvl 108 meq/L 95 - 109 05/26/2017 [facility] CHEM PANEL Sodium Lvl 141 meq/L 135 - 145 05/26/2017 [facility] CHEM PANEL BUN 9 mg/dL 7 - 22 05/26/2017 [facility] CHEM PANEL Creatinine Lvl 0.73 mg/dL 0.50 - 1.40 05/26/2017 [facility] CHEM PANEL Glucose Lvl 90 mg/dL 70 - 99 05/26/2017 [facility] CHEM PANEL AGAP 11.3 meq/L 10.0 - 20.0 05/26/2017 [facility] CHEM PANEL Magnesium Lvl 2.3 mg/dL 1.8 - 2.4 05/26/2017 [facility] HEMATOLOGY Platelet 163 K/CMM 133 - 450 05/26/2017 [facility] HEMATOLOGY MPV 8.3 fL 7.4 - 10.4 05/26/2017 [facility] HEMATOLOGY Hct 38.3 % 42.0 - 54.0 05/26/2017 [facility] HEMATOLOGY RBC 4.28 M/CMM 4.70 - 6.10 05/26/2017 [facility] HEMATOLOGY Hgb 13.0 g/dL 14.0 - 18.0 05/26/2017 [facility] HEMATOLOGY WBC 8.0 K/CMM 3.7 - 10.4 05/26/2017 [facility] HEMATOLOGY MCV 89.6 fL 80.0 - 94.0 05/26/2017 [facility] HEMATOLOGY MCH 30.3 pg 27.0 - 31.0 05/26/2017 [facility] HEMATOLOGY RDW 13.1 % 11.5 - 14.5 05/26/2017 [facility] HEMATOLOGY MCHC 33.8 g/dL 32.0 - 36.0 05/26/2017 [facility] HEMATOLOGY Eosinophils # 0.1 K/CMM 0.0 - 0.5 05/26/2017 [facility] HEMATOLOGY Basophils 0.6 % 0.0 - 1.0 05/26/2017 [facility] HEMATOLOGY Segs-Bands # 5.5 K/CMM 1.5 - 8.1 05/26/2017 [facility] HEMATOLOGY Monocytes # 0.8 K/CMM 0.0 - 0.8 05/26/2017 [facility] HEMATOLOGY Lymphocytes # 1.6 K/CMM 1.0 - 5.5 05/26/2017 [facility] HEMATOLOGY Segs 69.4 % 45.0 - 75.0 05/26/2017 [facility] HEMATOLOGY Lymphocytes 19.8 % 20.0 - 40.0 05/26/2017 [facility] HEMATOLOGY Eosinophils 0.7 % 0.0 - 4.0 05/26/2017 [facility] HEMATOLOGY Monocytes 9.5 % 2.0 - 12.0 05/26/2017 [facility] Chest 1view DX Chest 1view DX Patient Name: PALMIRA GANDARA : 1960; Age: 56 years Male MR: [id number] Study: Chest 1view DX Order Time: 05/26/2017 3:00 AM [employer] CLINICAL INDICATION: - post surgery COMPARISON: Chest radiograph on 05/25/2017 FINDINGS: Lines: None. Lungs: Minimal left base atelectasis. No significant effusion or pneumothorax. Mediastinum: The cardiac silhouette is within normal limits of size. Midline trachea. Bones and soft tissues: No acute abnormalities. Cervical spine fusion hardware. IMPRESSION: No acute cardiopulmonary abnormalities. No significant change since 05/25/2017. SL: [id number] 05/26/2017 - - Read by: Damián Tellez MD Dictated Date/time: 05/26/17 09:19 Electronically Signed by: Damián Tellez MD 05/26/17 09:20 FINAL REPORT [facility] Chest/Abdomen/Pelvis w IV contrast CT Chest/Abdomen/Pelvis w IV contrast CT CT CHEST ABDOMEN PELVIS WITH CONTRAST: HISTORY: Post gastric surgery, evaluate for leak. TECHNIQUE: Multislice axial acquisitions of the chest, abdomen and pelvis were done with IV contrast. Oral contrast was also administered. Sagittal and coronal reformatted images were also done. FINDINGS: There are postoperative changes involving the stomach without evidence of obstruction or leak. A few extraluminal gas bubbles in the upper abdomen in the small amount of gas in the abdominal wall are seen consistent with the recent procedure. There is a new mesh in the left upper quadrant abdominal wall compared to the CT on 05/10/2012. The remainder of the esophagus and gastrointestinal tract are within normal limits. There is no free fluid or abscess. There is no evidence of pneumothorax or pleural effusion. There are no significant pulmonary or pleural abnormalities. There is no mediastinal mass or fluid collection. Mild postoperative pneumomediastinum is noted. There is a low attenuation band in the parenchyma of the left lobe of the liver possibly related to retractor. The liver is otherwise unremarkable. The gallbladder has been removed. There is no evidence of biliary dilatation. The spleen, pancreas, kidneys and adrenal glands show no significant abnormalities. Atherosclerotic changes are noted without significant retroperitoneal abnormalities. There are no significant osseous abnormalities. IMPRESSION: 1. Recent postoperative changes without evidence of gastric or esophageal leak or obstruction. 2. No other acute CT abnormalities in the chest, abdomen or pelvis. DLAWRENCE- 05/25/2017 - - Read by: Hemant Miranda MD Dictated Date/time: 05/25/17 17:25 Electronically Signed by: Hemant Miranda MD 05/25/17 17:40 FINAL REPORT [facility] ELECTROLYTES Chloride Lvl 107 meq/L 95 - 109 05/25/2017 [facility] ELECTROLYTES CO2 26 meq/L 24 - 32 05/25/2017 [facility] ELECTROLYTES Creatinine Lvl 0.91 mg/dL 0.50 - 1.40 05/25/2017 [facility] ELECTROLYTES Potassium Lvl 4.3 meq/L 3.5 - 5.1 05/25/2017 [facility] ELECTROLYTES Sodium Lvl 142 meq/L 135 - 145 05/25/2017 [facility] ELECTROLYTES BUN 10 mg/dL 7 - 22 05/25/2017 [facility] ELECTROLYTES Glucose Lvl 102 mg/dL 70 - 99 05/25/2017 [facility] ELECTROLYTES Albumin Lvl 3.1 g/dL 3.5 - 5.0 05/25/2017 [facility] ELECTROLYTES Calcium Lvl 8.1 mg/dL 8.5 - 10.5 05/25/2017 [facility] ELECTROLYTES B/C Ratio 11 6 - 25 05/25/2017 [facility] ELECTROLYTES Total Protein 6.5 g/dL 6.4 - 8.4 05/25/2017 [facility] ELECTROLYTES AGAP 13.3 meq/L 10.0 - 20.0 05/25/2017 [facility] ELECTROLYTES AST 233 unit/L 0 - 37 05/25/2017 [facility] ELECTROLYTES Globulin 3.4 g/dL 2.7 - 4.2 05/25/2017 [facility] ELECTROLYTES A/G Ratio 0.9 0.7 - 1.6 05/25/2017 [facility] ELECTROLYTES Alk Phos 69 unit/L 39 - 136 05/25/2017 [facility] ELECTROLYTES ALT 332 unit/L 0 - 65 05/25/2017 [facility] ELECTROLYTES eGFR 95 mL/min/1.73m2 05/25/2017 Result Comment: The eGFR is calculated using the [...] from the National Kidney Disease Education Program (NKDEP) which additionally recommends that when the eGFR is used in patients with extremes of body mass index for purposes of drug dosing, the eGFR should be multiplied by the estimated BMI. [facility] ELECTROLYTES Bili Total 0.8 mg/dL 0.2 - 1.3 05/25/2017 [facility] HEMATOLOGY MCH 30.6 pg 27.0 - 31.0 05/25/2017 [facility] MCV 88.7 fL 80.0 - 94.0 05/25/2017 [facility] Hct 39.0 % 42.0 - 54.0 05/25/2017 [facility] HEMATOLOGY Hgb 13.5 g/dL 14.0 - 18.0 05/25/2017 [facility] MCHC 34.5 g/dL 32.0 - 36.0 05/25/2017 [facility] RBC 4.40 M/CMM 4.70 - 6.10 05/25/2017 [facility] WBC 14.9 K/CMM 3.7 - 10.4 05/25/2017 [facility] MPV 8.0 fL 7.4 - 10.4 05/25/2017 [facility] RDW 12.9 % 11.5 - 14.5 05/25/2017 [facility] Platelet 192 K/CMM 133 - 450 05/25/2017 [facility] Chest 1view DX Chest 1view DX PROCEDURE: Chest, 1 view on 05/25/2017 at 0951 hours. INDICATION: Tube placements, removal, reposition. Pleural effusion. COMPARISON: Chest radiographs dated 05/24/2017 and 05/23/2017. FINDINGS: Minimal left basilar atelectasis or infiltrate. Lungs are otherwise clear. No pleural effusion or pneumothorax. Cardiac silhouette is not enlarged. Minimal aortic wall calcification. Mediastinum is unremarkable. IMPRESSION: Minimal left basilar atelectasis or infiltrate. SL: [id number] 05/25/2017 - - Read by: Moshe Montano MD Dictated Date/time: 05/25/17 11:25 Electronically Signed by: Moshe Montano MD 05/25/17 11:26 FINAL REPORT [facility] CHEM PANEL Magnesium Lvl 2.4 mg/dL 1.8 - 2.4 05/24/2017 [facility] CHEM PANEL eGFR 107 mL/min/1.73m2 05/24/2017 Result Comment: The eGFR is calculated using the [...] from the National Kidney Disease Education Program (NKDEP) which additionally recommends that when the eGFR is used in patients with extremes of body mass index for purposes of drug dosing, the eGFR should be multiplied by the estimated BMI. [facility] CHEM PANEL Calcium Lvl 7.6 mg/dL 8.5 - 10.5 05/24/2017 [facility] CHEM PANEL Chloride Lvl 107 meq/L 95 - 109 05/24/2017 [facility] CHEM PANEL Potassium Lvl 4.1 meq/L 3.5 - 5.1 05/24/2017 [facility] CHEM PANEL CO2 23 meq/L 24 - 32 05/24/2017 [facility] CHEM PANEL Glucose Lvl 124 mg/dL 70 - 99 05/24/2017 [facility] CHEM PANEL Sodium Lvl 141 meq/L 135 - 145 05/24/2017 [facility] CHEM PANEL Creatinine Lvl 0.71 mg/dL 0.50 - 1.40 05/24/2017 [facility] CHEM PANEL BUN 20 mg/dL 7 - 22 05/24/2017 [facility] CHEM PANEL AGAP 15.1 meq/L 10.0 - 20.0 05/24/2017 [facility] CHEM PANEL Magnesium Lvl 1.7 mg/dL 1.8 - 2.4 05/24/2017 [facility] HEMATOLOGY RDW 12.7 % 11.5 - 14.5 05/24/2017 [facility] MCHC 33.7 g/dL 32.0 - 36.0 05/24/2017 [facility] Platelet 198 K/CMM 133 - 450 05/24/2017 [facility] MCH 30.1 pg 27.0 - 31.0 05/24/2017 [facility] MCV 89.3 fL 80.0 - 94.0 05/24/2017 [facility] Hct 40.6 % 42.0 - 54.0 05/24/2017 [facility] MPV 7.8 fL 7.4 - 10.4 05/24/2017 [facility] Hgb 13.7 g/dL 14.0 - 18.0 05/24/2017 [facility] RBC 4.55 M/CMM 4.70 - 6.10 05/24/2017 [facility] WBC 10.3 K/CMM 3.7 - 10.4 05/24/2017 [facility] Segs 83.4 % 45.0 - 75.0 05/24/2017 [facility] Lymphocytes 12.7 % 20.0 - 40.0 05/24/2017 [facility] Lymphocytes # 1.3 K/CMM 1.0 - 5.5 05/24/2017 [facility] Monocytes # 0.4 K/CMM 0.0 - 0.8 05/24/2017 [facility] Eosinophils 0.2 % 0.0 - 4.0 05/24/2017 [facility] Monocytes 3.5 % 2.0 - 12.0 05/24/2017 [facility] Segs-Bands # 8.6 K/CMM 1.5 - 8.1 05/24/2017 [facility] Basophils 0.2 % 0.0 - 1.0 05/24/2017 [facility] Chest 1view DX Chest 1view DX XR CHEST 1 VIEW HISTORY: Coughing. COMPARISON: None. FINDINGS: The lungs are clear. The heart and vascular markings are normal. No pleural abnormality. The bones are intact. Chronic widening of the left AC joint. IMPRESSION: No active process. SL: [id number] 05/24/2017 - - Read by: Servando Orr MD Dictated Date/time: 05/24/17 12:07 Electronically Signed by: Servando Orr MD 05/24/17 12:07 FINAL REPORT [facility] BLOOD [facility] RESULTS Antibody Scrn Negative (05/23/17 7:55 AM) 05/23/2017 [facility] BLOOD BANK RESULTS ABO/Rh A POS 05/23/2017 [facility] CHEM PANEL Albumin Lvl 3.8 g/dL 3.5 - 5.0 05/23/2017 [facility] CHEM PANEL Total Protein 7.6 g/dL 6.4 - 8.4 05/23/2017 [facility] CHEM PANEL Alk Phos 89 unit/L 39 - 136 05/23/2017 [facility] CHEM PANEL Bili Total 0.7 mg/dL 0.2 - 1.3 05/23/2017 [facility] CHEM PANEL ALT 28 unit/L 0 - 65 05/23/2017 [facility] CHEM PANEL AST 14 unit/L 0 - 37 05/23/2017 [facility] CHEM PANEL A/G Ratio 1.0 0.7 - 1.6 05/23/2017 [facility] CHEM PANEL Globulin 3.8 g/dL 2.7 - 4.2 05/23/2017 [facility] CHEM PANEL B/C Ratio 21 6 - 25 05/23/2017 [facility] HEMATOLOGY PTT 23.9 s 22.9 - 35.8 05/23/2017 [facility] HEMATOLOGY PT 12.1 s 12.0 - 14.7 05/23/2017 [facility] HEMATOLOGY INR 0.90 0.85 - 1.17 05/23/2017 [facility] HEMATOLOGY Monocytes # 0.6 K/CMM 0.0 - 0.8 05/23/2017 [facility] HEMATOLOGY Eosinophils 0.4 % 0.0 - 4.0 05/23/2017 [facility] HEMATOLOGY Basophils 0.3 % 0.0 - 1.0 05/23/2017 [facility] HEMATOLOGY Lymphocytes # 2.0 K/CMM 1.0 - 5.5 05/23/2017 [facility] HEMATOLOGY Segs-Bands # 6.5 K/CMM 1.5 - 8.1 05/23/2017 [facility] HEMATOLOGY Lymphocytes 22.2 % 20.0 - 40.0 05/23/2017 [facility] HEMATOLOGY Segs 70.7 % 45.0 - 75.0 05/23/2017 [facility] HEMATOLOGY Monocytes 6.4 % 2.0 - 12.0 05/23/2017 [facility] URINE AND STOOL UA Sq Epi None Seen 05/23/2017 [facility] URINE AND STOOL UA Mucus Few /LPF None Seen /LPF 05/23/2017 [facility] URINE AND STOOL UA pH 5.0 5.0 - 8.0 05/23/2017 [facility] URINE AND STOOL UA Spec Grav 1.025 <=1.030 05/23/2017 [facility] URINE AND STOOL UA Color Yellow *NA* (05/23/17 7:55 AM) Yellow 05/23/2017 [facility] URINE AND STOOL UA Glucose Negative mg/dL Negative mg/dL 05/23/2017 [facility] URINE AND STOOL UA Bili Negative *NA* (05/23/17 7:55 AM) Negative 05/23/2017 [facility] URINE AND STOOL UA Ketones Negative mg/dL Negative mg/dL 05/23/2017 [facility] URINE AND STOOL UA Leuk Est Negative (05/23/17 7:55 AM) Negative 05/23/2017 [facility] URINE AND STOOL UA RBC 2 /HPF 0 - 2 05/23/2017 [facility] URINE AND STOOL UA Blood Negative (05/23/17 7:55 AM) Negative 05/23/2017 [facility] URINE AND STOOL UA Urobilinogen 2.0 mg/dL 0.1 - 1.0 05/23/2017 [facility] URINE AND STOOL UA Nitrite Negative (05/23/17 7:55 AM) Negative 05/23/2017 [facility] URINE AND STOOL UA Protein Negative mg/dL Negative mg/dL 05/23/2017 [facility] URINE AND STOOL UA Turbidity Clear (05/23/17 7:55 AM) Clear 05/23/2017 [facility] BLOOD BANK RESULTS RBC product Product available (05/23/17 7:25 AM) 05/23/2017 [facility] Chest 2 views DX Chest 2 views DX Clinical Indication: Coughing - pre op. Comparison: 2013. TECHNIQUE: PA and lateral chest radiographs were performed. (2 views) FINDINGS: LUNGS: Normal lung volumes. No interstitial or airspace opacities. No pleural effusions or pneumothorax. HEART AND MEDIASTINUM: The heart size is normal. The pulmonary vasculature is normal. The mediastinal contour is normal. The trachea is midline. OSSEOUS STRUCTURES: No acute abnormality seen. IMPRESSION: 1. No acute cardiopulmonary disease. SL: [id number] 05/23/2017 - - Read by: Kenan Main MD Dictated Date/time: 05/23/17 08:22 Electronically Signed by: Kenan Main MD 05/23/17 08:22 FINAL REPORT [facility] Stomach emptying NM Stomach emptying ID Stomach emptying NM CLINICAL HISTORY: - K30 Functional dyspepsia; TECHNIQUE: 1 mCi of sulfur colloid meal was administered orally. Images were performed in anterior projection and an excretion curve plotted. FINDINGS: There is prompt activity identified within the stomach and prompt excretion into the small bowel thereafter. The slope of the excretion curve is within normal limits. The T half life is 85 minutes. (Normal range of 45min- 110min). % excretion at approx. 60 minutes: 36 % % excretion at approx. 90 minutes: 49 % % excretion at approx. 120 minutes: 64 % % excretion at approx. 180 minutes: 90 % % excretion at approx. 240 minutes: 97 % (Normal <10% residual) IMPRESSION: Normal gastric emptying study. : [id number] 05/23/2017 - - Read by: Yusef Baker MD Dictated Date/time: 05/23/17 15:25 Electronically Signed by: Yusef Baker MD 05/23/17 15:26 FINAL REPORT [facility] Barium Swallow w Esophagus Function DX Barium Swallow w Esophagus Function DX EXAM: Esophagram HISTORY: Dysphagia, diaphragmatic hernia COMPARISON: None TECHNIQUE: Thin barium was utilized for recumbent prone oblique and LPO images. Thick barium was utilized for upright imaging of the esophagus and pharynx. Granola mixed with barium was given to evaluate motility with solids. Video was obtained. Fluoroscopy time 4.4 minutes. Skin dose 80 mGy FINDINGS: There is no delay in passage of the barium bolus from the pharynx into the esophagus. The cricopharyngeus relaxes normally. No cricopharyngeal bar or Zenker diverticulum is seen. Narrowing of the esophagogastric junction with liquid with patient in prone oblique position with moderate stasis of the liquid in the distal half of the esophagus. Marked stasis of liquid throughout the esophagus with patient in supine oblique position. There is improved esophageal peristalsis with patient in upright position with liquid but with persistent moderate-marked stasis in the distal esophagus with mild tertiary esophageal contractions. Moderate-marked stasis in the distal esophagus with granola with some to and fro motion. Contrast passes into the stomach and small bowel. Apparent fundoplication defect at the gastric cardia. No hiatal hernia is seen. IMPRESSION: 1. Marked esophageal dysmotility with stasis of liquid with patient in recumbent position that mildly improves with patient upright. Moderate-marked esophageal dysmotility with granola. 2. Probable fundoplication. SL 13 05/08/2017 - - Read by: Chadwick Zepeda MD Dictated Date/time: 05/08/17 16:35 Electronically Signed by: Chadwick Zepeda MD 05/08/17 16:50 FINAL REPORT [facility] cervical wo contrast MRI Spine cervical wo contrast MRI EXAM: MRI CERVICAL SPINE WITHOUT CONTRAST DATE: 01/12/2017 8:13 AM CDT INDICATION: 56 years old Male patient with history of M54.2 Cervicalgia - M54.2 Cervicalgia. COMPARISON: None. TECHNIQUE: Multiplanar, multisequence noncontrast MR imaging of the cervical spine. FINDINGS: There are changes of anterior cervical spine fusion from C5 to C7. Vertebral alignment is near anatomic without significant subluxation. Vertebral body heights are grossly maintained. No significant bone marrow signal abnormality is identified. Craniovertebral junction appears unremarkable. Cerebellar tonsils are normal in position. There is normal signal intensity of the cervical spinal cord. Prevertebral and paravertebral soft tissue appear unremarkable. Disc level analysis as follows: C2-C3: Degenerative disc desiccation with preservation of the disc height. There is no significant spinal canal stenosis. No significant neural foramina stenosis is identified. C3-C4: Degenerative disc desiccation with preservation of the disc height. There is no significant spinal canal stenosis. No significant neural foramina stenosis is identified. C4-C5: Degenerative disc desiccation with mild loss of the disc height. Mild diffuse disc bulge. There is no significant spinal canal stenosis. Bilateral dnjq-zx-ymapgbrz neural foramina stenosis from uncovertebral and facet joint hypertrophy. C5-C6: There is no significant spinal canal stenosis. No significant neural foramina stenosis is identified. C6-C7: There is no significant spinal canal stenosis. No significant neural foramina stenosis is identified. C7-T1: Normal disc signal with preservation of the disc height. There is no significant spinal canal stenosis. No significant neural foramina stenosis is identified. IMPRESSION: 1. Changes of anterior cervical spine fusion from C5 to C7. Vertebral alignment is near anatomic without significant subluxation. 2. Bilateral pjpw-lj-xdxwgllz neural foramina narrowing at C4-C5 from uncovertebral and facet joint hypertrophy. 3. No significant spinal canal stenosis or spinal cord signal abnormality. 01/12/2017 - - Read by: Ronn Julien MD Dictated Date/time: 01/14/17 08:29 Electronically Signed by: Ronn Julien MD 01/14/17 09:01 FINAL REPORT RONALDO Shah Abdomen complete US Abdomen complete US EXAM: US ABDOMEN COMPLETE DATE: 02/03/2015 at 1449.. INDICATION: Abdominal pain. ADDITIONAL INFORMATION: None. COMPARISON: None. TECHNIQUE: Multiplanar grayscale and color Doppler ultrasound images of the abdomen were obtained. FINDINGS: Liver demonstrates increased echogenicity without masses. Right hepatic lobe measures 15 cm at the midclavicular line. Main portal vein is 1.0 cm in diameter with hepatopetal flow. The gallbladder is surgically absent. Visualized portions of the intrahepatic biliary tree are of normal caliber. Common duct is 4.2 mm. Spleen measures 7.7 x 2.6 x 3.3 cm. The spleen is grossly unremarkable. Pancreas is unremarkable where visualized. The pancreas is partially obscured by bowel gas. Kidneys are normal in size, shape, and echotexture without hydronephrosis. Right kidney measures 10.5 x 4.6 x 4.6 cm. Left kidney measures 11.1 x 4.8 x 4.5 cm. 1.4 x 1.0 x 1.1 cm simple appearing cyst in the upper pole the right kidney. The kidneys are otherwise unremarkable Abdominal aorta is of normal caliber. Inferior vena cava unremarkable where visualized. No free fluid identified. IMPRESSION: No acute abnormality. Fatty infiltration of the liver. Prior cholecystectomy. 1.4 cm simple appearing right renal cyst. 02/03/2015 - - Read by: Helena Hendrickson MD Dictated Date/time: 02/03/15 17:30 Electronically Signed by: Helena Hendrickson MD 02/03/15 17:34 FINAL REPORT [facility] Sinus paranasal series Sinus paranasal series SINUS SERIES CLINICAL HISTORY: Sinusitis. COMPARISON IMAGING: None. FINDINGS: 4 views of the sinuses were submitted for evaluation. Both maxillary antra and the frontal sinuses are well-aerated. Visualized portions of the ethmoid and mastoid air cells are clear. No fracture or radiopaque foreign body is seen. Sella is unenlarged. Soft tissues are grossly unremarkable. IMPRESSION: No significant abnormality. 07/09/2013 - - Read by: Kam Pond Dictated Date/time: 07/09/13 12:01 Electronically Signed by: Kam Pond MD 07/09/13 12:01 FINAL REPORT RONALDO Cook Chest 2 views Chest 2 views CHEST RADIOGRAPHY CLINICAL HISTORY: Allergic rhinitis COMPARISON IMAGIN09/05/2012 FINDINGS: Two views of the chest were acquired and submitted for evaluation. No pleural fluid is identified. The contour of the cardiac silhouette is within normal limits. There is no significant pulmonary consolidation or nodularity. Bones are unremarkable. IMPRESSION: No significant abnormality. 07/09/2013 - - Read by: Simi Muller Dictated Date/time: 07/09/13 11:57 Electronically Signed by: Simi Muller DO 07/09/13 12:00 FINAL REPORT MIGUEL ANGEL Cook Vital Signs Vital Sign Value Date Comments Source Respitory Rate 16 05/26/2017 [facility] Systolic (mm Hg) 121 05/26/2017 [facility] Diastolic (mm Hg) 76 05/26/2017 [facility] Respitory Rate 18 05/26/2017 [facility] Temperature Oral (F) 97.8 F 05/26/2017 [facility] Heart Rate 48 05/26/2017 [facility] Respitory Rate 16 05/26/2017 [facility] Systolic (mm Hg) 101 05/26/2017 [facility] Diastolic (mm Hg) 64 05/26/2017 [facility] Heart Rate 62 05/26/2017 [facility] Temperature Oral (F) 98.2 F 05/26/2017 [facility] Temperature Oral (F) 98.0 F 05/26/2017 [facility] Heart Rate 58 05/26/2017 [facility] Systolic (mm Hg) 113 05/26/2017 [facility] Diastolic (mm Hg) 70 05/26/2017 [facility] Weight 69.864 05/23/2017 [facility] BMI Calculated 24.12 05/23/2017 [facility] Height 170.18 cm 05/23/2017 [facility] Encounters Location Location Details Encounter Type Encounter Number Reason For Visit Attending Provider ADM Date DC Date Status Source [facility] Outpatient [id number] DIVERTECULAR DIESEAS 562.10 ALI IVANIA 05/10/2012 Active [facility] Outpatient Imaging - [place] [facility] [id number] Aidan Cochran 02/03/2015 02/04/2015 RONALDO [facility] Outpatient Imaging - [place] [facility] [id number] Richard Mobleychao 01/12/2017 [facility]13[facility] [id number] [facility] 05/08/2017 05/09/2017 [facility] Outpatient [id number] [facility] 05/23/2017 05/24/2017 [facility] Inpatient [id number] Dyllan Acevedo 05/24/2017 05/26/2017 [facility] Outpatient [id number] [facility] 06/07/2017 06/08/2017 [facility] Outpatient Imaging - [place] Out[facility] Di[facility] Services [id number] Aidan Cochran 08/07/2017 08/08/2017 [facility] [place] [facility]art[facility] Room [id number] FARHEEN LIM MD 10/26/2017 10/26/2017 [facility] [place] [id number] 553.20 VALERIE Goldsmith [facility] Procedures Procedure Code Date Perfomer Comments Source Computed tomography of abdomen and pelvis with contrast 565451611 10/26/2017 [facility] Laparoscopic cholecystectomy [id number] [facility] Operation<sup>1</sup> 869205434 colon resection laparoscopic [facility] Rotator cuff repair<sup>2</sup> 34958437 left [facility] Laparoscopic cholecystectomy [id number] [facility] Operation<sup>1</sup> 633893490 colon resection laparoscopic [facility] Rotator cuff repair<sup>2</sup> 45408060 left [facility] Cervical discectomy 320810426 [facility] [place] Esophagogastroduodenoscopy [id number] [facility] [place] Laparoscopic cholecystectomy 93259970 [facility] [place] Laparoscopic repair of ventral hernia 217077516 [facility] [place] Humberto fundoplication [id number] [facility] [place] Operation<sup>1</sup> 304145942 colon resection [facility] Rotator cuff repair<sup>2</sup> 28805978 left [facility] Cervical discectomy [id number] [facility] Esophagogastroduodenoscopy [id number] [facility] Laparoscopic repair of ventral hernia 364055020 [facility] Humberto fundoplication [id number] [facility] Laparoscopic cholecystectomy [id number] [facility] Operation<sup>1</sup> 110903931 colon resection laparoscopic [facility] Rotator cuff repair<sup>2</sup> 49434771 left [facility]
--- OUTSIDE RECORDS SUMMARY | 2018-07-11 06:50 | XMS REPORT | Summary of Care ---
Author Author [facility] Outpatient Imaging [facility] Outpatient [facility] Address Unknown Phone Unavailable Encounter HQ Encntr_alias(FIN) [id number] Date(s): 02/03/15 - 02/03/15 [facility] Imaging [facility] [address] [facility], [address] [place], [place] [address] [phone] Discharge Disposition: Home Attending Physician: Aidan Cochran MD Vital Signs No data available for [...]
--- OUTSIDE RECORDS SUMMARY | 2018-07-11 06:50 | XMS REPORT | Summary of Care ---
Author Author [facility] Outpatient Imaging [facility] Address Unknown Phone Unavailable Encounter HQ Encntr_alialbert(FIN) [id number] Date(s): 01/12/17 - 01/12/17 [facility] Outpatient Imaging [facility] [address] [place] [address]- Discharge Disposition: Home or Self Care Attending Physician: Richard Martinez MD Vital Signs No data available for [...]
--- OUTSIDE RECORDS SUMMARY | 2018-07-11 06:50 | XMS REPORT | Summary of Care ---
Author Author [facility] Organization [facility] Address Unknown Phone Unavailable Encounter HQ Steven_destiny(FIN) [id number] Date(s): 06/07/17 - 06/07/17 [facility] [address] [place] [address]- [phone] Discharge Disposition: Home or Self Care Attending [...]
--- OUTSIDE RECORDS SUMMARY | 2018-07-11 06:51 | XMS REPORT | Summary of Care ---
Author Author JHONNY Mccormick, ISIDRO Organization Unknown Address Unknown Phone Unavailable Care Team Providers Care Honing Machine Set Up Operator Name Role Phone ISIDRO BARRY M.D. Unavailable [...] smoker Vital Signs Date Test Result Details [id number] BP Systolic 133 mm[Hg] Status: Comments: Location: [...]
--- OUTSIDE RECORDS SUMMARY | 2018-07-11 06:51 | XMS REPORT ---
Author Author [facility] Address Unknown Phone Unavailable Care Team Providers Care Silo Operator Name Role Phone SANDRA GUSTAFSON Unavailable Unavailable Stone LIM Unavailable Unavailable Payers Payer Name Policy Type Policy Number Effective Date Expiration Date Problems This patient has no known problems. Allergies, Adverse Reactions, Alerts Allergy Name Allergy Type Status Severity Reaction(s) Onset Date Inactive Date Treating Clinician Comments No Known Allergies DA Active U 2015-01-25 00:00:00 Medications This patient has no known medications. Results Test Description Test Time Test Comments Text Results Atomic Results Result Comments CHEST 2 VIEWS 2018-07-09 12:07:00 [place] [address] Patient Name: PALMIRA GANDARA MR #: [id number] : 1960 Age/Sex: 58/M Req #: [id number] Adm Physician: Ordered by: SANDRA GUSTAFSON DPM Report #: [id number] Location: OR Room/Bed: Procedure: [id number] DX/CHEST 2 VIEWS Exam Date: 07/09/18 Exam Time: 1145 REPORT STATUS: Signed EXAM: XR CHEST 2 VIEWS DATE: 07/09/2018 11:42 AM IND ICATION: Preoperative. Left foot surgery. COMPARISON: None FINDINGS: Lines and Tubes: None Heart and Mediastinum: No acute cardiomediastinal findings. Lungs and Pleura: No significant pleural effusion, pneumothorax, or focal consolidation. Mild biapical scarring. Bones and Soft Tissues: Surgical anchor left humeral head. IMPRESSION: 1. No acute cardiopulmonary findings. Signed by: Dr. Lawrence Walker MD on 07/09/2018 12:08 PM Dictated By: LAWRENCE WALKER MD 120 Transcribed By: MARGARETH on 07/09/18 1208 COPY TO: SANDRA GUSTAFSNO DPM CT ABDOMEN/PELVIS W [place] [address] Patient Name: PALMIRA GANDARA MR #: [id number] : 1960 Age/Sex: 57/M Req #: [id number] Adm Physician: Ordered by: FARHEEN LIM MD Report #: [id number] Location: ER Room/Bed: Procedure: [id number] CT/CT ABDOMEN/PELVIS W Exam Date: 10/26/17 Exam Time: 1620 REPORT STATUS: Signed EXAM: CT Abdomen and Pelvis WITH contrast INDICATION: Left lower quadrant pain COMPARISON: None. TECHNIQUE: Abdomen and pelvis were scanned utilizing a multidetector helical scanner from the lung base to the ischial tuberosities after administration of IV contrast. Coronal and sagittal reformations were obtained. Routine protocol was performed. Scan was performed when during portal venous phase. IV CONTRAST: 100 mL of Isovue-370 ORAL CONTRAST: Gastroview RADIATION DOSE: Total DLP: 281.0 mGy*cm Estimated effective dose: DLP x 0.015 mSv COMPLICATIONS: None FINDINGS: LINES and TUBES: None. LOWER THORAX: The lungs and airways are normal. HEPATOBILIARY: No focal hepatic lesions. No biliary ductal dilation. GALLBLADDER: Absent SPLEEN: No splenomegaly. PANCREAS: No focal masses or ductal dilatation. ADRENALS: No adrenal nodules KIDNEYS/URETERS: Kidneys enhance symmetrically. No hydronephrosis. Small hypodensities in the right kidney are too small to characterize, but likely represent cysts. No stones. GI TRACT: Post surgical changes from prior sigmoid resection. No ab normal distention, wall thickening, or evidence of bowel obstruction. Numerous sigmoid diverticula without evidence of acute diverticulitis. There is a large amount of stool throughout the colon Postsurgical changes to the stomach at the level of the GE junction. Appendix is normal. PELVIC ORGANS/BLADDER: Coarse calcifications in the prostate. Foci of gas density within the bladder are presumably related to recent catheterization. LYMPH NODES: No lymphadenopathy. VESSELS: Unremarkable. PERITONEUM / RETROPERITONEUM: No free air or fluid. BONES: Unremarkable. SOFT TISSUES: Bilateral, fat-containing inguinal hernias. No bowel involvement. Midline laparotomy scar. IMPRESSION: 1. Postsurgical changes from prior sigmoid resection. 2. Sigmoid diverticulosis without CT evidence of acute diverticulitis. 3. There is a large amount of stool throughout the colon. Signed by: Dr. Wendy Spencer M.D. on 10/26/2017 5:19 PM Dictated By: WENDY SPENCER MD 18 Transcribed By: MARGARETH on 10/26/171718 COPY TO: FARHEEN LIM MD
--- OUTSIDE RECORDS SUMMARY | 2018-07-11 06:51 | XMS REPORT | Summary of Care ---
Author Author [facility] Outpatient Imaging - [facility] Outpatient Imaging - [place] Address Unknown Phone Unavailable Encounter HQ Alexandriantr_destiny(FIN) [id number] Date(s): 08/07/17 - 08/07/17 [facility] Imaging [facility] [address] [place] [phone] Encounter Diagnosis Headache (Final) - 08/12/17 Discharge Disposition: Home or Self Care Attending Physician: Aidan Cochran MD Vital Signs [...] Procedures Procedure Date Related Diagnosis Body Site Status Cervical discectomy Completed Esophagogastroduodenoscopy Completed Laparoscopic cholecystectomy Completed Laparoscopic repair of ventral hernia Completed Humberto fundoplication Completed Operation1 Completed Rotator cuff repair2 Completed 1colon resection laparoscopic 2left Social History Social History Type Response Alcohol Current1 Smoking Status Former smoker; Exposure to Tobacco Smoke None; Cigarette Smoking Last 365 Days Yes; Reg Smoking Cessation Counseling No entered on: 05/24/17 1social Assessment and Plan No data available for this section
[2018-07-11 12:05] VITALS: BP 125/71
--- NOTE | 2018-07-25 16:31 | Operative Report ---
DATE OF PROCEDURE: PREOPERATIVE DIAGNOSES: 1. 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 2. Plantar fasciitis left foot. 3. Nerve entrapment tibial nerve left foot. 4. 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 POSTOPERATIVE DIAGNOSES: 1. 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 2. Plantar fasciitis left foot. 3. Nerve entrapment tibial nerve left foot. 4. 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 TITLE OF OPERATION: 1. Fusion 1st metatarsophalangeal joint of the left foot. 2. Endoscopic plantar fasciotomy left foot. 3. Neurolysis of the tibial nerve left foot, open, with microscopic evaluation and dissection. 4. Neurolysis of the deep peroneal nerve left foot with microscopic evaluation and dissection. PROCEDURE IN DETAIL: The patient was taken to the operating room in a mildly sedated state and placed upon the operating table in supine position. Following induction of a general anesthetic, the left lower extremity was elevated to 60 degrees to exsanguinate before inflating the pneumatic thigh tourniquet to 350 mmHg to create hemostasis. Left lower extremity was placed upon the operating table prior to performing the following procedure. Procedure number 1 is fusion of the 1st metatarsophalangeal joint of the left foot. A linear longitudinal incision was made across the dorsomedial aspect of the 1st metatarsophalangeal joint of the left foot. The incision was deepened via sharp and blunt dissection down to the level of the dorsal capsular structure. Care was taken to identify and retract all vital structures encountered. The head of the 1st metatarsal was delivered into the surgical site. It was noted to be significantly hypertrophic with a void of adequate cartilaginous material. There was significant inflammatory process surrounding the joint itself. This bad cartilage was then resected utilizing a circular mechanical debrider. A similar device was used through K-wire into the base of the intermediate phalanx. This allowed for and facilitated a proper alignment and abutment of the head of the 1st metatarsal and the base of the proximal phalanx. This was then drilled to facilitate healing. After being placed together and aligned appropriately with a slight dorsiflexion approximately 10 degrees in a rectus alignment, the toe was pinned in the proper position and a lag screw advanced. A dorsal plate was applied. The area was irrigated with copious amounts of sterile saline solution. Deep closure was 3-0 Vicryl, skin closure 4-0 Vicryl and 4-0 nylon. Attention was then directed to the plantar fascia for endoscopic plantar fasciotomy. A medial stab incision was placed, and the plantar fascia was identified through endoscope and elongated in the medial band the appropriate length. The area was irrigated with copious amounts of sterile saline solution and closed with a single stitch of nylon both medial and lateral. The area was then evaluated for entrapment of the tibial nerve. A J-shaped incision was placed at the posterior aspect of the medial malleolus. The posterior tibial fossa was then identified and entered. The very large nerve was identified. Significant engorgement of the veins in the area was noted with significant varicosities. After irrigation and a combination of ligation or electrocautery, the area was then cleared of all significant varicosities. The nerve itself was identified and noted to be entrapped with significant scar tissue. This was all released. A lighted microscope was used to evaluate the actual nerve itself. This nerve was then released and irrigated. The actual fossa was then treated with a human tissue allograft, and deep closure was 3-0 Vicryl over the graft and 4-0 nylon. A TLS drain was applied. Attention was then directed to the dorsal aspect of the foot for a neurolysis of the deep peroneal nerve. A linear incision was made at the dorsum of the foot, and the deep peroneal nerve was identified. The sectioned brevis tendon was identified and noted to be contracted over the deep peroneal nerve. This allowed for freeing of the deep peroneal nerve. The area was irrigated with copious amounts of sterile saline solution. Deep closure was 3-0 Vicryl, subcutaneous closure 4-0 Vicryl and 4-0 nylon. Human tissue allograft was applied in that area to prevent re-adhesions as well. This having been accomplished, the areas were all blocked with 0.5 Marcaine, Decadron [place]. The appropriate mildly compressive dressings were applied. Release of the pneumatic thigh tourniquet showed normal hyperemic flush to all digits of the left foot. Posterior splint was applied, and the patient left the operating room with vital signs stable, in apparent satisfactory condition, having tolerated both anesthetic and procedure very well. Job#: [id number] EV
== END | disposition home or self-care (01) ==
LOC: OR 06:47
PROVIDERS: ATTEND Podiatrist Foot Surgery
DX: M19.072 Primary osteoarthritis, left ankle and foot (principal); M72.2 Plantar fascial fibromatosis; G57.52 Tarsal tunnel syndrome, left lower limb; G57.32 Lesion of lateral popliteal nerve, left lower limb; G47.33 Obstructive sleep apnea (adult) (pediatric); K21.9 Gastro-esophageal reflux disease without esophagitis; I45.10 Unspecified right bundle-branch block; F41.9 Anxiety disorder, unspecified; Z01.810 Encounter for preprocedural cardiovascular examination; Z01.818 Encounter for other preprocedural examination
CPT/HCPCS: 28035; 28750; 29893; 64704; 71046; 93005; C1713 ×4; J0131; J1100; J1170; J2001; J2250; J2405; J2704

== ENCOUNTER 2019-03-16 16:19 | Emergency (ER) | payer BC ==
[~2019-03-16] VITALS: Ht 167.6 cm; Wt 70.8 kg
[~2019-03-16 16:19] MED LIST changes: -ACETAMINOPHEN 1000 MG/100 ML 100 ML IV ONE; -DEXAMETHASONE SOD PHOS INJ 4 MG/ML VIAL ONE; -EPHEDRINE SULFATE INJ 50 MG/10 ML SYR ONE; -FENTANYL CITRATE/PF 100MCG/2 ML INJ ONE; -HYDROMORPHONE 2MG/ML 2 MG/ML ML ONE; -LIDOCAINE HCL 2% LOCAL INJ 5 ML SDV VIAL INJ ONE; -MIDAZOLAM HCL 2 MG/2 ML VIAL ONE; -MUPIROCIN 2% OINT 22 GM TUBE ONE; -ONDANSETRON HCL INJ 2MG/ML 2ML 2 MG/ML VIAL ONE; -PROPOFOL IV EMULSION 10 MG/ML 20 ML VIAL ONE; -SEVOFLURANE INHAL SOLN 250 ML PEN BTL ONE
[2019-03-16 17:34] LABS: BASOPHILS % 0.1 % (0.0-1.0); EOSINOPHILS % 0.2 % (0.0-6.0); HEMATOCRIT 39.8 % (38.2-49.6); HEMOGLOBIN 13.4 g/dL (14.0-18.0); LYMPHOCYTES # (AUTO) 2.3 (1.0-3.2); LYMPHOCYTES % 22.5 % (18.0-39.1); MEAN CORPUSCULAR HGB CONC 33.7 g/dL (31-35); MONOCYTES # (AUTO) 0.9 (0.2-0.8); MONOCYTES % 9.1 % (4.4-11.3); NEUTROPHILS # (AUTO) 6.9 (2.1-6.9); NEUTROPHILS % 67.1 % (38.7-80.0); PLATELET COUNT 214 x10e3/uL (140-360); RED BLOOD COUNT 4.47 x10e6/uL (4.3-5.7); RED CELL DISTRIBUTION WIDTH 13.4 % (11.7-14.4)
[2019-03-16 17:35] LABS: BILIRUBIN,URINE NEGATIVE (NEGATIVE); CLARITY,URINE SL CLOUDY (CLEAR); COLOR,URINE YELLOW (YELLOW); KETONES,URINE NEGATIVE (NEGATIVE); LEUKOCYTE ESTERASE ,URINE NEGATIVE (NEGATIVE); NITRITE,URINE NEGATIVE (NEGATIVE); PROTEIN,URINE DIPSTICK NEGATIVE (NEGATIVE); URINE UROBILINOGEN 0.2 mg/dL (0.2 - 1)
[2019-03-16 17:53] LABS: ALANINE AMINOTRANSFERASE 11 IU/L (0-55); ALBUMIN 3.8 g/dL (3.5-5.0); ALBUMIN/GLOBULIN RATIO 1.2 (0.8-2.0); ALKALINE PHOSPHATASE 67 IU/L (40-150); ANION GAP 11.9 mmol/L (8-16); BLOOD UREA NITROGEN 24 mg/dL (7-26); BUN/CREATININE RATIO 29 (6-25); CALCIUM 9.3 mg/dL (8.4-10.2); CARBON DIOXIDE 25 mmol/L (22-29); CHLORIDE 103 mmol/L (98-107); CREATININE, SERUM 0.82 mg/dL (0.72-1.25); EST GLOMERULAR FILTRATION RATE > 60 ML/MIN (60-); GLUCOSE 98 mg/dL (74-118); POTASSIUM 3.9 mmol/L (3.5-5.1); SODIUM 136 mmol/L (136-145)
[2019-03-16 17:55] LABS: EPITHELIAL CELLS,URINE FEW /LPF; MUCUS,URINE FEW (RARE)
[2019-03-16] MEDS ORDERED: PANTOPRAZOLE 40 MG 10ML VIAL IV STA (18:31)
[2019-03-16] MEDS ORDERED: HYDROMORPHONE 1MG/1ML INJ IV STA (18:31)
[2019-03-16] MEDS ORDERED: SODIUM CHLORIDE 0.9% 1000ML 1,000 ML IV ONE (18:45)
[2019-03-16] MEDS ORDERED: IOPAMIDOL 370 MG/ML 200 ML INFUS..BTL INJ ONE (19:08)
[2019-03-16] MEDS ORDERED: SODIUM CHLORIDE 0.9% 50ML 50 ML ONE (19:08)
--- NOTE | 2019-03-16 19:15 | Diagnostic Imaging Report ---
EXAM: CT Abdomen and Pelvis WITH contrast INDICATION: Abdominal pain. Diverticulitis. Diarrhea, nausea. COMPARISON: 10/26/2017. TECHNIQUE: Abdomen and pelvis were scanned utilizing a multidetector helical scanner from the lung base to the pubic symphysis after administration of IV contrast. Coronal and sagittal reformations were obtained. Routine protocol was performed. Scan was performed when during portal venous phase. IV CONTRAST: 100 cc Isovue-[id number]. ORAL CONTRAST: Water RADIATION DOSE: Total DLP: 22.03 mGy*cm Estimated effective dose: (DLP x 0.015 x size factor) mSv COMPLICATIONS: None FINDINGS: LINES and TUBES: None. LOWER THORAX: Unremarkable HEPATOBILIARY: The liver is mild diffuse hypodense compared to the spleen, consistent with diffuse hepatic diffuse hepatic steatosis. No focal hepatic lesions. No biliary ductal dilation. GALLBLADDER: Status post cholecystectomy. SPLEEN: No splenomegaly. PANCREAS: No focal masses or ductal dilatation. ADRENALS: No adrenal nodules KIDNEYS/URETERS: Kidneys enhance symmetrically. No hydronephrosis. Small hypodensities again observed in the right kidney are too small to characterize, but likely represent cysts No stones. GI TRACT: No abnormal distention, wall thickening, or evidence of bowel obstruction. Surgical sutures along the lateral superior gastric body, unchanged. There are diverticula within the colon without evidence of diverticulitis. Redemonstration of prior sigmoid resection with rectosigmoid anastomosis in the lower pelvis. Appendix is normal. 2.9 cm second portion duodenal diverticula. PELVIC ORGANS/BLADDER: Calcifications of the prostate. LYMPH NODES: No lymphadenopathy. VESSELS: There is mild atherosclerotic disease in the aorta and major arterial branches. PERITONEUM / RETROPERITONEUM: No free air or fluid. BONES: Unremarkable. SOFT TISSUES: Bilateral small fat-containing inguinal hernias. There is a small supraumbilical hernia containing a short segment of bowel, without evidence of obstruction. This is new since the prior examination. IMPRESSION: 1. Small supraumbilical ventral abdominal hernia, possible incisional containing a short segment of bowel loop without evidence of bowel obstruction. 2. Postsurgical changes involving the stomach and the rectosigmoid again observed without acute abnormality. 3. Diverticulosis coli without diverticulitis. Signed by: Dr. Melo Recinos M.D. on 03/16/2019 7:12 PM
== END 2019-03-16 19:52 | disposition home or self-care (01) ==
LOC: ER 16:19
DX: R10.32 Left lower quadrant pain (principal); R19.7 Diarrhea, unspecified; F41.9 Anxiety disorder, unspecified; K21.9 Gastro-esophageal reflux disease without esophagitis
CPT/HCPCS: 36415; 74177; 80053; 81001; 85025; 93005; 96374; 99284; C9113; J7030; Q9967